=== PATIENT | female | born 1970 | race African-American/Black ===

== ENCOUNTER 2016-05-18 12:29 | Emergency (ER) ==
[2016-05-18] MEDS ORDERED: CATAPRES PO ONE (13:16)
--- NOTE | 2016-05-18 13:23 | PROVIDER DOCUMENTATION ---
HPI-Chest Pain <Joshua Royal - Last Filed: 05/18/16 16:05> - General Source: patient - History of Present Illness-CP Severity in ED: mild Onset/Duration: unsure Timing: still present Context/Activities at Onset: reports: light activity Associated Symptoms: reports: denies symptoms Nitro Today/Relief: no nitro taken today Aspirin Treatment Today: no aspirin today Prior Chest Pain/Cardiac Workup: reports: no prior chest pain Similar Symptoms Previously?: No Recently Seen Here or By Another Healthcare Provider: No <Carrie Carrasco - Last Filed: 05/18/16 16:32> - General Chief Complaint: Chest Pain Stated Complaint: CP,BLAIR Time Seen by Provider: 05/18/16 13:08 Allergies/Adverse Reactions: Patient Allergies Allergy/AdvReac Type Severity Reaction Status Date / Time adhesive tape Allergy ITCHING Verified 05/18/16 15:01 Home Medications: Home Medication List Medication Instructions Recorded Confirmed Last Taken Type Lisinopril 20 mg PO DAILY #30 tablet 07/05/15 03/14/16 2 Days Ago Rx Clopidogrel Bisulfate [Plavix] 75 mg PO DAILY 08/13/15 03/14/16 2 Days Ago History Levetiracetam [Keppra] 500 mg PO BID #60 tablet 09/22/15 03/14/16 2 Days Ago Rx Hydrocodone/APAP 7.5 mg/325 mg 1 each PO Q6H PRN PRN #12 tablet 11/04/15 2 Days Ago Rx [[place]-7.5] Alprazolam [Xanax] 1 mg PO BID 03/14/16 03/14/16 Unknown History Amlodipine Besylate [Norvasc] 10 mg PO DAILY 03/14/16 03/14/16 Unknown History Amlodipine Besylate [Norvasc] 10 mg PO QHS #30 tablet 03/14/16 Unknown Rx Lisinopril 10 mg PO DAILY #30 tablet 03/14/16 Unknown Rx Metformin [Glucophage] 500 mg PO BID 03/14/16 03/14/16 Unknown History Methocarbamol [Robaxin-750] 750 mg PO TID #30 tablet 03/14/16 Unknown Rx Tramadol [Ultram] 50 mg PO TID PRN PRN #30 tablet 03/14/16 Unknown Rx Clonidine HCl 0.1 mg PO TID PRN #30 tablet 05/18/16 Unknown Rx Hydralazine [Apresoline] 10 mg PO TID #90 tablet 05/18/16 Unknown Rx Metoprolol Tartrate 50 mg PO BID #60 tablet 05/18/16 Unknown Rx - History of Present Illness-CP Nature of Presenting Problem: Pt is a 45 yof who came to the ED with a cc of passing out due to the reflux from her titanium plug in her heart. Pt reports she has been passing out over the past week. Pt said she has not seen her heart doctor. (Carrie Carrasco) Review of Systems - Adult - REVIEW OF SYSTEMS - ADULT Constitutional: denies: chills, fever Eyes: reports: no symptoms reported Ears, Nose, Mouth & Throat: denies: sinus problem, mouth/dental pain Cardiovascular: reports: chest pain. denies: irregular heart rate, orthopnea Respiratory: reports: no symptoms reported Gastrointestinal: denies: diarrhea, nausea, vomiting Genitourinary: reports: no symptoms reported Musculoskeletal: reports: no symptoms reported Integumentary: reports: no symptoms reported Neurological: reports: no symptoms reported Psychiatric: reports: no symptoms reported Endocrine: reports: no symptoms reported Hematologic/Lymphatic: reports: no symptoms reported Allergic/Immunologic: reports: no symptoms reported All Other Systems: Reviewed and Negative <Carrie Carrasco - Last Filed: 05/18/16 16:32> Past History - Adult - PAST MEDICAL HISTORY-ADULT Review of Records: reports: Old Records Reviewed, Nursing Assessment Review Cardiovascular: reports: cardiac disease, HTN (for years and has never been controlled despite various multiple medication combinations.), hyperlipidemia, [place] Respiratory: reports: sleep apnea Musculoskeletal: reports: chronic pain, intervertebral disc disease, neck/back injury Neurological: reports: CVA, TIA Psychiatric: reports: anxiety, depression Endocrine/Immune: reports: thyroid disorder, Diabetes Other Conditions: reports: eye problems/injury - PRIOR SURGERIES/PROCEDURES Surgical/Procedure History: reports: cholecystectomy, hysterectomy, , tonsillectomy, other (cardiac implant) - IMMUNIZATION STATUS Childhood Immunizations: See Nurse Assessment Flu Vaccine: See Nurse Assessment - FAMILY HISTORY Family History: reviewed, not pertinent <Carrie Carrasco - Last Filed: 05/18/16 16:32> Physical Exam-General - CONSTITUTIONAL General Appearance: alert - EYES Eyes: PERRL/EOMI, pink conjunctivae, fundi clear, no AV nicking - HEAD, EARS, NOSE, MOUTH & THROAT HENMT: normocephalic/atraumatic, moist mucous membranes, normal ENT inspection - NECK Neck: non-tender - RESPIRATORY Respiratory: chest non-tender, lungs clear - CARDIOVASCULAR Cardiovascular: normal peripheral pulses, regular rate, rhythm, no edema - CHEST (BREASTS) Chest/Breast: deferred - GASTROINTESTINAL (ABDOMEN) Abdominal Exam: normal bowel sounds, non tender - MUSCULOSKELETAL Back Exam: normal inspection Extremity: non-tender - SKIN Integumentary: normal color - NEUROLOGIC Neurologic: grossly normal - PSYCHIATRIC Psych/Mental Status: normal mood/affect, normal thought content, normal thought process, oriented x 3 <Carrie Carrasco - Last Filed: 05/18/16 16:32> Progress <Joshua Royal - Last Filed: 05/18/16 16:05> - EKG 1 Time of EKG reading by physician:: 12:38 EKG Read and Signed by:: Joshua Royal EKG Interpretation (*Must complete 3 of following elements*): Abnormal Rate: 105 (right atrial enlargement; pulmonary disease pattern; left anterior fascicular block) Rhythm: sinus tachycardia <Carrie Carrasco - Last Filed: 05/18/16 16:32> - PLAN OF CARE/RESULTS Progress/Plan/Lab Results: Vital Signs - 24 hr 05/18/16 12:43 Temperature 97.5 F L Pulse Rate 102 H Respiratory 20 Rate Blood Pressure 206/117 O2 Sat by Pulse 100 Oximetry Orders Category Date Time Status Cardiac Monitoring DIRECTED Care 05/18/16 13:17 Active Saline Loc NOW Care 05/18/16 13:17 Active CHEST-2 VIEWS [RAD] Stat Exams 05/18/16 13:17 Ordered CBC WITH ELECTRONIC DIFF [HEME] Stat Lab 05/18/16 13:17 Uncollected CK PROFILE [SP CHEM] Stat Lab 05/18/16 13:17 Uncollected COMPREHENSIVE METABOLIC PANEL [CHEM] Stat Lab 05/18/16 13:17 Uncollected D-DIMER [CHEM] Stat Lab 05/18/16 13:17 Uncollected MAGNESIUM [CHEM] Stat Lab 05/18/16 13:17 Uncollected PRO B-NATRIURETIC PEPTIDE Stat Lab 05/18/16 13:17 Uncollected PROTIME WITH INR [COAG] Stat Lab 05/18/16 13:17 Uncollected PTT [COAG] Stat Lab 05/18/16 13:17 Uncollected TROPONIN T Stat Lab 05/18/16 13:17 Uncollected TROPONIN T Stat Lab 05/18/16 13:23 Ordered UDS [URINE DRUG SCREEN] Stat Lab 05/18/16 13:18 Uncollected Clonidine [Catapres] Med 05/18/16 13:16 Discontinued 0.2 mg PO NOW ONE EKG [EKG] Stat Ther 05/18/16 13:17 Ordered (Carrie Carrasco) Departure - Departure Time of Disposition Order: 16:05 Certified Medical Emergency: Emergent <Joshua Royal - Last Filed: 05/18/16 16:05> - Departure Time of Disposition Order: 16:15 Certified Medical Emergency: Emergent <Carrie Carrasco - Last Filed: 05/18/16 16:32> - Departure DIAGNOSIS: Illicit drug use, Uncontrolled hypertension Disposition: HOME 01 Condition: Stable Additional Instructions: pt to see Dr Ortiz tomorrow to determine if her fear of VSD repair malfunction needs to be of concern She needs to see her doctor to Fu on BP meds ED Follow Up Instructions: You have been treated by a care provider in the Emergency Department. These instructions are being provided to you so you can have an understanding of how to care for yourself upon discharge. Upon discharge from the Emergency Department, you are responsible for making arrangements for follow-up care by a physician of your choice. Take all prescribed medications as directed. Return to the Emergency Department immediately for any new or worsening symptoms. You may call the Physician Referral phone number at [phone] to obtain a list of Physicians who are taking new patients. Prescriptions: Hydralazine [Apresoline] 10 mg PO TID #90 tablet Clonidine HCl 0.1 mg PO TID PRN #30 tablet PRN Reason: hypertension Metoprolol Tartrate 50 mg PO BID #60 tablet Referrals: Brayden Tucker MD [Primary Care Provider] - Attestation - Scribe Verification/Attestation Scribe:: Carrie Carrasco Acting as Scribe for:: Joshua Royal Scribe documention review:: This chart was documented by a scribe and accurately reflects the service the provider performed and the decisions made by the provider. <Carrie Carrasco - Last Filed: 05/18/16 16:32> Physician Attestation
[2016-05-18 14:12] LABS: MANUAL DIFF NEEDED? NO
[2016-05-18 14:18] LABS: BASO% 0.1 % (0.0-0.8); HEMATOCRIT 40.1 % (37.0-47.0); HEMOGLOBIN 13.6 g/dL (12.0-16.0); LYMPH# 1.28 X1000 (1.2-3.4); LYMPH% 13.9 % (20.5-51.1); MCH 28.8 PG (27-31); MCHC 33.9 g/dL (33-37); MONO# 0.69 X1000 (0.11-0.59); MONO% 7.5 % (1.7-9.3); MPV 9.2 FL (7.4-10.4); NEUT% 78.5 % (42.2-75.2); PLT 287 X1000 (130-400); RBC 4.72 XMIL (4.2-5.4)
[2016-05-18 14:33] LABS: AGAP 16; ALBUMIN 4.3 g/dL (3.5-5.0); ALKALINE PHOSPHATASE 66 U/L (32-104); BUN 9 mg/dL (8-22); CHLORIDE 100 mmol/L (98-107); CK PROFILE 117 U/L (24-173); COSMO 279; GOT 18 U/L (10-30); GPT 18 U/L (10-36); MAGNESIUM 1.5 mg/dL (1.5-2.7); POTASSIUM 3.1 mmol/L (3.5-5.1); SODIUM 141 mmol/L (136-145); TCO2 25 mmol/L (25-35); TOTAL BILIRUBIN 0.54 mg/dL (0.20-1.00); TOTAL PROTEIN 7.7 g/dL (6.3-8.3)
[2016-05-18] MEDS ORDERED: APRESOLINE IV ONE (15:00)
[2016-05-18 15:30] LABS: INR 1.02; PROTIME 10.8 Seconds (9.2-11.7)
[2016-05-18 15:35] LABS: UR AMPHETAMINES QUAL NONE DETECTED (NONE DETECT); UR BARBITUATES QUAL NONE DETECTED (NONE DETECT); UR BENZODIAZEPIN QUAL NONE DETECTED (NONE DETECT); UR CANNABINOIDS QUAL PRESUMPTIVE POSITIVE (NONE DETECT); UR COCAINE QUAL NONE DETECTED (NONE DETECT); UR METHADONE QUAL NONE DETECTED (NONE DETECT); UR OPIATES QUAL NONE DETECTED (NONE DETECT); UR OXYCODONE QUAL NONE DETECTED (NONE DETECT); UR PCP QUAL NONE DETECTED (NONE DETECT)
[2016-05-18 15:40] LABS: PTT 27.6 Seconds (22.0-36.0)
--- NOTE | 2016-05-18 15:53 | Diag Imaging Result Document ---
PROCEDURE NAME: CHEST-2 VIEWS - 05/18/2016 SEATED AP AND LATERAL RADIOGRAPH OF THE CHEST: COMPARISON: 12/21/2015. FINDINGS: The lungs are grossly clear. There is no discrete pleural fluid collection or evidence of pneumothorax. The cardiomediastinal silhouette and upper airway are grossly unremarkable. IMPRESSION: No evidence of acute chest pathology.
[2016-05-18 16:11] VITALS: BP 140/93
--- NOTE | 2016-05-19 05:35 | EKG Report ---
Test Performed on : 05/18/2016 2:55:46 PM Test Reason : cp Blood Pressure : / mmHG Vent. Rate : 085 BPM Atrial Rate : 085 BPM P-R Int : 128 ms QRS Dur : 082 ms QT Int : 398 ms P-R-T Axes : 053 -53 011 degrees QTc Int : 473 ms Normal sinus rhythm. Left anterior fascicular block Nonspecific T wave abnormality Abnormal ECG When compared with ECG of 18-MAY-2016 12:38, (Unconfirmed) No significant change was found Unconfirmed Result
--- NOTE | 2016-05-19 05:52 | EKG Report ---
Test Performed on : 05/18/2016 12:38:40 PM Test Reason : Re-Ordered Blood Pressure : / mmHG Vent. Rate : 105 BPM Atrial Rate : 105 BPM P-R Int : 134 ms QRS Dur : 082 ms QT Int : 364 ms P-R-T Axes : 066 -57 029 degrees QTc Int : 481 ms Sinus tachycardia. Right atrial enlargement Pulmonary disease pattern Left anterior fascicular block Abnormal ECG When compared with ECG of 14-MAR-2016 19:59, No significant change was found Unconfirmed Result
== END 2016-05-18 17:08 | disposition home or self-care (01) ==
LOC: ED 12:29
DX: I10 Essential (primary) hypertension (principal); F19.90 Other psychoactive substance use, unspecified, uncomplicated; R94.31 Abnormal electrocardiogram [ECG] [EKG]; R07.9 Chest pain, unspecified; R51 Headache; R55 Syncope and collapse; E78.5 Hyperlipidemia, unspecified; I25.2 Old myocardial infarction; G89.29 Other chronic pain; E11.9 Type 2 diabetes mellitus without complications; F41.9 Anxiety disorder, unspecified; Z79.02 Long term (current) use of antithrombotics/antiplatelets; Z79.899 Other long term (current) drug therapy; Z86.73 Personal history of transient ischemic attack (TIA), and cerebral infarction without residual deficits; Z95.818 Presence of other cardiac implants and grafts
CPT/HCPCS: 71020; 80053; 82550; 83735; 83880; 84484; 85025; 85379; 85610; 85730; 93005; G0480; J0360; 80324; 80345; 80346; 80349; 80353; 80358; 80361; 80365; 83992

== ENCOUNTER 2016-07-15 12:13 | Inpatient (IN) ==
--- NOTE | 2016-07-15 12:30 | EKG Report ---
Test Performed on : 07/15/2016 12:17:59 PM Test Reason : Stroke like symptoms Blood Pressure : / mmHG Vent. Rate : 103 BPM Atrial Rate : 103 BPM P-R Int : 126 ms QRS Dur : 080 ms QT Int : 354 ms P-R-T Axes : 063 -58 039 degrees QTc Int : 463 ms Sinus tachycardia. Possible Left atrial enlargement Left anterior fascicular block Left ventricular hypertrophy Abnormal ECG When compared with ECG of 18-MAY-2016 14:55, Nonspecific T wave abnormality no longer evident in Inferior leads Nonspecific T wave abnormality, improved in Lateral leads Unconfirmed Result
--- NOTE | 2016-07-15 13:06 | Diag Imaging Result Doc PS360 ---
CHEST-PORTABLE - 07/15/2016 INDICATION: Strokelike symptoms COMPARISON: 05/18/2016 FINDINGS: The lungs are normally expanded and clear. Heart size and mediastinal contours are normal. No pneumothorax or pleural effusion. IMPRESSION: Negative exam. Electronically signed by Willian Chapman 07/15/2016 1:03 PM
--- NOTE | 2016-07-15 13:09 | Diag Imaging Result Doc PS360 ---
HEAD W/O CONTRAST - 07/15/2016 INDICATION: Stroke like symptoms COMPARISON: 03/14/2016 FINDINGS: The ventricles and sulci are normal in size and contour. No intracranial mass or hemorrhage. The skull is intact. The sinuses mastoids and middle ears are clear. IMPRESSION: Negative exam. Electronically signed by Willian Chapman 07/15/2016 1:07 PM
[2016-07-15 13:54] LABS: MANUAL DIFF NEEDED? NO
[2016-07-15 13:57] LABS: BASO% 0.4 % (0.0-0.8); EOS# 0.01 X1000 (0.0-0.7); EOS% 0.2 % (0.0-10.0); HEMATOCRIT 40.1 % (37.0-47.0); HEMOGLOBIN 13.4 g/dL (12.0-16.0); LYMPH# 1.83 X1000 (1.2-3.4); LYMPH% 38.3 % (20.5-51.1); MCH 28.6 PG (27-31); MCHC 33.4 g/dL (33-37); MCV 85.5 FL (81-99); MONO# 0.43 X1000 (0.11-0.59); MPV 9.8 FL (7.4-10.4); NEUT% 52.1 % (42.2-75.2); PLT 248 X1000 (130-400); RBC 4.69 XMIL (4.2-5.4)
[2016-07-15 14:13] LABS: AGAP 10; ALBUMIN 4.2 g/dL (3.5-5.0); ALKALINE PHOSPHATASE 65 U/L (32-104); BUN 12 mg/dL (8-22); CALCIUM 9.9 mg/dL (8.8-10.2); CHLORIDE 101 mmol/L (98-107); COSMO 280; GOT 18 U/L (10-30); GPT 15 U/L (10-36); POTASSIUM 2.8 mmol/L (3.5-5.1); SODIUM 141 mmol/L (136-145); TCO2 30 mmol/L (25-35); TOTAL BILIRUBIN 0.63 mg/dL (0.20-1.00); TOTAL PROTEIN 7.2 g/dL (6.3-8.3)
--- NOTE | 2016-07-15 14:23 | PROVIDER DOCUMENTATION ---
This chart was entered by Carrie Carrasco Scribe, acting as scribe for Joshua Royal MD. HPI-Neurological Disorder - General Chief Complaint: Stroke-Like Symptoms Stated Complaint: STROKE LIKE SX Time Seen by Provider: 07/15/16 12:33 Source: patient Allergies/Adverse Reactions: Patient Allergies Allergy/AdvReac Type Severity Reaction Status Date / Time adhesive tape Allergy ITCHING Verified 05/18/16 15:01 Home Medications: Home Medication List Medication Instructions Recorded Confirmed Last Taken Type Lisinopril 20 mg PO DAILY #30 tablet 07/05/15 03/14/16 2 Days Ago Rx Clopidogrel Bisulfate [Plavix] 75 mg PO DAILY 08/13/15 03/14/16 2 Days Ago History Levetiracetam [Keppra] 500 mg PO BID #60 tablet 09/22/15 03/14/16 2 Days Ago Rx Hydrocodone/APAP 7.5 mg/325 mg 1 each PO Q6H PRN PRN #12 tablet 11/04/15 2 Days Ago Rx [[place]-7.5] Alprazolam [Xanax] 1 mg PO BID 03/14/16 03/14/16 Unknown History Amlodipine Besylate [Norvasc] 10 mg PO DAILY 03/14/16 03/14/16 Unknown History Amlodipine Besylate [Norvasc] 10 mg PO QHS #30 tablet 03/14/16 Unknown Rx Lisinopril 10 mg PO DAILY #30 tablet 03/14/16 Unknown Rx Metformin [Glucophage] 500 mg PO BID 03/14/16 03/14/16 Unknown History Methocarbamol [Robaxin-750] 750 mg PO TID #30 tablet 03/14/16 Unknown Rx Tramadol [Ultram] 50 mg PO TID PRN PRN #30 tablet 03/14/16 Unknown Rx Clonidine HCl 0.1 mg PO TID PRN #30 tablet 05/18/16 Unknown Rx Hydralazine [Apresoline] 10 mg PO TID #90 tablet 05/18/16 Unknown Rx Metoprolol Tartrate 50 mg PO BID #60 tablet 05/18/16 Unknown Rx - History of Present Illness-Neuro Nature of Presenting Problem: Pt is 45 yof who came to the ED with a cc of stroke like symptoms. Pt mother reports the symptoms started yesterday at 19:00. The pt symptoms were slurred speech, right sided weakness. Pt has a hx of smoking spice reported from the mother. The pt is unable to walk due to her dragging her right foot. The pt lives alone and has a hx of mini strokes in the past. Severity: reports: moderate Onset/Duration: reports: 24 hours ago Timing: reports: still present Any recent trauma/injury?: reports: none Character of Deficits: reports: new weakness, impaired speech, decreased ability to stand, decreased ability to walk New weakness or altered sensation location:: reports: RUE, RLE Cognitive Baseline: alert, oriented x3 Associated Symptoms: reports: slurred speech, weakness Recently seen or treated by another doctor?: No Review of Systems - Adult - REVIEW OF SYSTEMS - ADULT Constitutional: denies: chills, fever Eyes: reports: no symptoms reported Ears, Nose, Mouth & Throat: reports: no symptoms reported Cardiovascular: reports: no symptoms reported Respiratory: reports: no symptoms reported Gastrointestinal: denies: diarrhea, nausea, vomiting Genitourinary: reports: no symptoms reported Musculoskeletal: reports: muscle weakness. denies: frequent leg cramps, joint pain Integumentary: reports: no symptoms reported Neurological: reports: loss of balance, slurred speech. denies: ataxia, syncope Psychiatric: reports: no symptoms reported Endocrine: reports: no symptoms reported Hematologic/Lymphatic: reports: no symptoms reported Allergic/Immunologic: reports: no symptoms reported All Other Systems: Reviewed and Negative Past History - Adult - PAST MEDICAL HISTORY-ADULT Review of Records: reports: Nursing Assessment Review Cardiovascular: reports: cardiac disease, HTN (for years and has never been controlled despite various multiple medication combinations.), hyperlipidemia, [place] Respiratory: reports: sleep apnea Musculoskeletal: reports: chronic pain, intervertebral disc disease, neck/back injury Neurological: reports: CVA, TIA Psychiatric: reports: anxiety, depression Endocrine/Immune: reports: thyroid disorder, Diabetes Other Conditions: reports: eye problems/injury - PRIOR SURGERIES/PROCEDURES Surgical/Procedure History: reports: cholecystectomy, hysterectomy, , tonsillectomy, other (cardiac implant) - IMMUNIZATION STATUS Childhood Immunizations: See Nurse Assessment Flu Vaccine: See Nurse Assessment - FAMILY HISTORY Family History: reviewed, not pertinent Physical Exam- Neurological - Physical Exam-Neuro Initial Vital Signs Reviewed: Yes General Appearance: alert, severe distress HENMT: normocephalic/atraumatic, moist mucous membranes Head Injury: no evidence of injury Neck: non-tender Respiratory: chest non-tender, lungs clear, normal breath sounds Cardiovascular: normal peripheral pulses, regular rate, rhythm Abdominal Exam: normal bowel sounds, non tender, soft Extremity: negative: normal gait medical scientist Exam: abnormal speech Coordination/Gait: abnormal gait Motor/Sensory: pronator drift (R), weak motor strength RUE, weak motor strength RLE Neurologic: abnormal gait, motor weakness Integumentary: normal turgor, warm/dry Psych/Mental Status: oriented x 3 - Glascow Coma Scale Best Eye Response: (4) open spontaneously Best Verbal Response: (5) oriented Progress - PLAN OF CARE/RESULTS Progress/Plan/Lab Results: Vital Signs - 8 hr 07/15/16 12:21 07/15/16 13:45 07/15/16 14:09 Temperature 97.8 F Pulse Rate 109 H 91 H 87 Respiratory Rate 20 15 20 Blood Pressure 209/123 196/124 206/118 O2 Sat by Pulse Oximetry 99 99 98 07/15/16 15:45 Temperature Pulse Rate 88 Respiratory Rate 17 Blood Pressure 172/117 O2 Sat by Pulse Oximetry 98 Laboratory Results - last 24 hr 07/15/16 07/15/16 07/15/16 13:42 13:42 13:42 WBC 4.78 L RBC 4.69 Hgb 13.4 Hct 40.1 MCV 85.5 MCH 28.6 MCHC 33.4 RDW Std Deviation 13.5 Plt Count 248 MPV 9.8 Immature Gran % (Auto) 0.0 Neut % (Auto) 52.1 Lymph % (Auto) 38.3 [place] % (Auto) 9.0 Eos % (Auto) 0.2 Baso % (Auto) 0.4 Immature Gran # (Auto) 0.00 Neut # (Auto) 2.49 Lymph # (Auto) 1.83 [place] # (Auto) 0.43 Eos # (Auto) 0.01 Baso # (Auto) 0.02 PT 10.2 INR 0.97 PTT (Actin FS) 32.0 Sodium 141 Potassium 2.8 L Chloride 101 Carbon Dioxide 30 Anion Gap 10 BUN 12 Creatinine 0.7 Estimated GFR/1.73 m2 > 60 BUN/Creatinine Ratio 17 Glucose 87 Calculated Osmolality 280 Calcium 9.9 Total Bilirubin 0.63 AST 18 ALT 15 Alkaline Phosphatase 65 Troponin T Total Protein 7.2 Albumin 4.2 Globulin 3.0 Albumin/Globulin Ratio 1.4 07/15/16 13:42 WBC RBC Hgb Hct MCV MCH MCHC RDW Std Deviation Plt Count MPV Immature Gran % (Auto) Neut % (Auto) Lymph % (Auto) [place] % (Auto) Eos % (Auto) Baso % (Auto) Immature Gran # (Auto) Neut # (Auto) Lymph # (Auto) [place] # (Auto) Eos # (Auto) Baso # (Auto) PT INR PTT (Actin FS) Sodium Potassium Chloride Carbon Dioxide Anion Gap BUN Creatinine Estimated GFR/1.73 m2 BUN/Creatinine Ratio Glucose Calculated Osmolality Calcium Total Bilirubin AST ALT Alkaline Phosphatase Troponin T < 0.010 Total Protein Albumin Globulin Albumin/Globulin Ratio Orders Category Date Time Status Cardiac Monitoring DIRECTED Care 07/15/16 12:28 Active Finger Stick Blood Sugar (ED) DIRECTED Care 07/15/16 12:28 Active Misc. NRSG Communication Order DIRECTED Care 07/15/16 12:28 Completed Misc. NRSG Communication Order DIRECTED Care 07/15/16 15:47 Active Saline Loc NOW Care 07/15/16 12:28 Active CHEST-PORTABLE [RAD] Stat Exams 07/15/16 12:28 Completed HEAD W/O CONTRAST [CT] Stat Exams 07/15/16 12:28 Completed CBC WITH ELECTRONIC DIFF [HEME] Stat Lab 07/15/16 13:42 Completed COMPREHENSIVE METABOLIC PANEL [CHEM] Stat Lab 07/15/16 13:42 Completed PROTIME WITH INR [COAG] Stat Lab 07/15/16 13:42 Completed PTT [COAG] Stat Lab 07/15/16 13:42 Completed TROPONIN T Stat Lab 07/15/16 13:42 Completed URINALYSIS W/POSS RFLX CULT-1 [URINALYSIS] Stat Lab 07/15/16 14:50 Ordered URINE DRUG SCREEN Stat Lab 07/15/16 14:50 Ordered Potassium Chloride 20% Liquid Med 07/15/16 15:43 Discontinued 60 meq PO NOW ONE EKG [EKG] Stat Ther 07/15/16 12:28 Draft Result Diagrams: 07/15/16 13:42 07/15/16 13:42 - EKG 1 Time of EKG reading by physician:: :17 EKG Read and Signed by:: Giancarlo Valadez EKG Interpretation (*Must complete 3 of following elements*): Abnormal Rate: 103 (possible left atrial enlargement; left anterior fascicular block; left ventricular hypertrophy) Rhythm: sinus tachycardia - CONSULTS/PCP/HOSPITALIST Notification #1 *Consult/PCP/Hospitalist*: Dr Tracy Time Discussed: 16:10 Reason/Comments: admit for evaluation and placement for rehab Departure - Departure Time of Disposition Decision: 16:11 DIAGNOSIS: CVA (cerebral vascular accident) Qualifiers: CVA mechanism: thrombosis Precerebral and cerebral artery: middle cerebral artery Laterality of affected vessel: unspecified Qualified Code(s): I63.319 - Cerebral infarction due to thrombosis of unspecified middle cerebral artery Disposition: ADMITTED INPATIENT 09 Certified Medical Emergency: Emergent Condition: Stable - Critical Care Note This patient required my direct & personal management of CC.: No This chart was documented by the indicated scribe, (Carrie Carrasco Scribe) and accurately reflects the services I performed and decisions made by me, Joshua Royal MD, as attested by the provider's signature.
[2016-07-15 14:27] LABS: INR 0.97; PROTIME 10.2 Seconds (9.2-11.7)
[2016-07-15] MEDS ORDERED: POTASSIUM CHLORIDE 20% LIQUID PO ONE (15:43)
[2016-07-15 17:25] LABS: HEMOGLOBIN A1C 5.5 % (4.8-6.0)
[2016-07-15 17:55] LABS: CK INDEX 0.9 (0.0-2.5); CK-MB 2.1 ng/mL (0.0-5.0)
--- NOTE | 2016-07-15 18:12 | HISTORY AND PHYSICAL ---
PRIMARY CARE PHYSICIAN: Brayden Tucker MD CHIEF COMPLAINT: Right-sided weakness and dysphagia. HISTORY OF PRESENT ILLNESS: Mrs. Reyes is a 45-year-old female with a history of a coronary artery disease, TIAs in the past, diabetes mellitus, and others, who presents with acute onset of right-sided weakness that began yesterday. She report yesterday that around 7 p.m. she lost feeling in her right arm and leg as well as the right side of her face. She did not seek emergent help at that time. She went to bed as normal and woke up this morning with a very hard stutter, some mild confusion and worsening right-sided weakness. Her mother came over at around 10 and brought her to the ER. Patient also has been having abdominal pain, nausea, vomiting, diarrhea, as well as occasional chest pain. Chills, but no fever. She reports lower extremity edema on occasion. Unfortunately, however, patient is a poor historian, given her dysphagia, family is at the bedside able to help with some questions. The patient reports that she is unable to afford her medications for blood pressure and diabetes and has not taken any in the past 3 months. She also reports she has a history of synthetic marijuana abuse and has not used for about 5 months, but when we left the room her sister did stop us in the hallway and states they believe she is still using some substance of unknown specificity as she is often times altered and with slurred speech. In the ER today, she had a normal head CT and her labs were essentially unremarkable with the exception of some hypokalemia. Her blood pressure is elevated, but overall her vitals are stable. On physical exam, the patient has a very hard stutter but she is oriented. She also has a mild right-sided facial droop, but her application development director strength is strong bilaterally. We are going to admit her for further treatment and evaluation. PAST MEDICAL HISTORY: 1. CAD. 2. Hyperlipidemia. 3. Obstructive sleep apnea. 4. Chronic pain. 5. History of CVA. 6. History of TIAs. 7. Depression. 8. Hypothyroidism. 9. Diabetes. 10. Medical noncompliance. 11. 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 SURGICAL HISTORY: Hysterectomy, , tonsillectomy, cholecystectomy, coronary stenting, apparent PFO closure, breast reduction, multiple knee surgeries. SOCIAL HISTORY: The patient smokes half a pack a day. She reports occasional alcohol use and reports she has not used synthetic marijuana in some time, but family states otherwise. FAMILY HISTORY: Noncontributory at this time. HOME MEDICATIONS: Xanax 1 mg b.i.d. Norvasc 10 mg b.i.d. Plavix 75 mg daily. Hydralazine 10 mg t.i.d. [place] 7.5 as needed for pain. Keppra 500 mg b.i.d. Lisinopril 30 mg daily. Robaxin 750 mg p.o. t.i.d. Metoprolol tartrate 50 mg p.o. b.i.d. ALLERGIES: Adhesive tape. REVIEW OF SYSTEMS: A 14 point review of systems obtained and found to be negative with the exception of the HPI. PHYSICAL EXAMINATION: VITAL SIGNS: Blood pressure is 206/118, heart rate 87, respiratory rate 20, O2 saturation 98% on room air. Temperature is 97.8 degrees. GENERAL: This is a thin bordering on frail-appearing and disheveled 45-year-old female who appears older than stated age lying, in hospital bed in no acute distress. NEUROLOGIC: The patient is awake and alert. She is stuttering, but overall is oriented. Her application development director strength is 5/5 in both upper extremities. She does have some right lower extremity weakness in the order of 3/5. She reports right-sided facial loss of sensation compared to the left, and she has a right-sided facial droop. HEENT: Head is atraumatic and normocephalic. Her pupils are equal, round, and reactive to light. Oral mucosa is dry. Trachea is midline. Neck is supple. No JVD. No carotid bruits. CHEST: Clear to auscultation bilaterally. CARDIOVASCULAR: Regular rate and rhythm. S1-S2 is noted. No murmurs, gallops, clicks, or rubs. GI: Soft, nondistended, nontender. Bowel sounds positive. EXTREMITIES: Without edema, clubbing or cyanosis. Pulses are palpable bilaterally. DIAGNOSTIC DATA: WBC 4.78, hemoglobin 13.4, hematocrit 40.1, platelet count 248,000. INR 0.97. PT 10.2. Sodium 141, potassium 2.8, chloride 101, CO2 30, anion gap 10, BUN 12, creatinine 0.7, glucose 87. LFTs within normal limits. Troponins and CKs are normal. ASSESSMENT AND PLAN: 1. Stroke-like symptoms: We are going to continue with the stroke workup. We still need a drug screen, thyroid function, B12, folate, MRI and echocardiogram. All of these have been ordered. We will admit the patient for telemetry and allow for permissive hypertension. We will do neurologic checks every 4 hours and add aspirin and statin. We will make sure to optimize her medications. 2. Hypokalemia: Check a magnesium and replace her potassium and follow. 3. Diabetes mellitus: Check a hemoglobin A1c. Add pattern sugars and sliding scale. 4. Hypertension: We will hold her medications to allow for permissive hypertension. 5. Coronary artery disease: We will check an echocardiogram, trend enzymes and make sure she is on aspirin and statin. Hold her beta-alex for now. She will need significant lifestyle modification. 6. Nicotine dependence: Patient has been advised to quit smoking. She is allergic to adhesives, so we cannot write a nicotine patch at least at this time. 7. Deep venous thrombosis prophylaxis will be provided with Lovenox. Further recommendations to follow. Dictated by CARINA Heath for Murphy Tracy MD cc: CARINA Heath MD Moses Awoniyi, MD
[2016-07-15] MEDS: NS 1,000 ML IV SCH (20:05)
[2016-07-15] MEDS: LIPITOR PO SCH (20:14)
[2016-07-15] MEDS: ASPIRIN PO SCH (20:14)
[2016-07-15] MEDS: DUONEB (A & A) INH SCH ×2 (23:15)
[2016-07-15 23:17] LABS: URINE MICRO REVIEW NEEDED? NO; URINE SOURCE CLEAN CATCH
[2016-07-15 23:20] LABS: BILIRUBIN URINE NEGATIVE (NEGATIVE); BLOOD URINE NEGATIVE (NEGATIVE); COLOR YELLOW; GLUCOSE URINE NEGATIVE (NEGATIVE); LEUKOCYTES URINE MODERATE (NEGATIVE); NITRITE URINE NEGATIVE (NEGATIVE); PH URINE 7.5; PROTEIN URINE 50 mg/dL (NEGATIVE); SP GRAVITY URINE 1.033; TURBIDITY URINE CLEAR (CLEAR); UROBILINOGEN URINE 8 mg/dL (NORMAL)
[2016-07-15 23:21] LABS: UR EPITHELIAL CELLS <10 /HPF (<10); URINE BACTERIA NEGATIVE /HPF; URINE CULTURE NEEDED? YES; URINE RBC <10 /HPF (<10)
[2016-07-15 23:55] LABS: UR AMPHETAMINES QUAL NONE DETECTED (NONE DETECT); UR BARBITUATES QUAL NONE DETECTED (NONE DETECT); UR BENZODIAZEPIN QUAL NONE DETECTED (NONE DETECT); UR CANNABINOIDS QUAL PRESUMPTIVE POSITIVE (NONE DETECT); UR COCAINE QUAL NONE DETECTED (NONE DETECT); UR METHADONE QUAL NONE DETECTED (NONE DETECT); UR OPIATES QUAL NONE DETECTED (NONE DETECT); UR OXYCODONE QUAL NONE DETECTED (NONE DETECT); UR PCP QUAL NONE DETECTED (NONE DETECT)
[2016-07-16] MEDS: HUMALOG SUBQ SCH ×5 (00:10→20:40)
[2016-07-16] MEDS: DUONEB (A & A) INH SCH ×6 (03:48→23:05)
[2016-07-16] MEDS ORDERED: TYLENOL PO PRN (04:37)
[2016-07-16 06:41] LABS: HEMOGLOBIN 11.8 g/dL (12.0-16.0)
[2016-07-16 07:00] LABS: AGAP 11; BUN 13 mg/dL (8-22); CALCIUM 8.4 mg/dL (8.8-10.2); CHLORIDE 103 mmol/L (98-107); COSMO 279; SODIUM 140 mmol/L (136-145); TCO2 26 mmol/L (25-35)
[2016-07-16] MEDS ORDERED: ATIVAN IV ONE (08:45)
[2016-07-16] MEDS ORDERED: KLOR-CON PO ONE (08:54)
[2016-07-16 09:20] LABS: HEMATOCRIT 36.3 % (37.0-47.0); MCH 28.8 PG (27-31); MCHC 32.5 g/dL (33-37); MCV 88.5 FL (81-99); MPV 10.2 FL (7.4-10.4); RBC 4.1 XMIL (4.2-5.4)
--- NOTE | 2016-07-16 10:19 | Diag Imaging Result Doc PS360 ---
EXAM: MRA BRAIN W/O CONTRAST HISTORY: stroke COMPARISON: None. FINDINGS: MR angiography of the [place] of [place]. MIP images obtained there is normal flow in each distal internal carotid artery. Normal filling of the anterior and middle cerebral arteries bilaterally. Normal flow in the basilar artery with normal filling of each posterior cerebral artery. No stenosis or occlusion. No aneurysm identified.. IMPRESSION: Negative MR angiography of the [place] of [place]. Electronically signed by Jj Vargas 07/16/2016 10:17 AM
--- NOTE | 2016-07-16 10:39 | Diag Imaging Result Doc PS360 ---
EXAM: MRA NECK W/CONT HISTORY: stroke like symptoms COMPARISON: None. FINDINGS: MIP images obtained. Normal flow within each common carotid artery. No stenosis. Normal flow within each internal carotid artery. No stenosis. There is flow in both vertebral arteries. No stenosis. IMPRESSION: Normal MR angiography of the neck. Electronically signed by Jj Vargas 07/16/2016 10:37 AM
--- NOTE | 2016-07-16 10:50 | Diag Imaging Result Doc PS360 ---
EXAM: MRI BRAIN W W/O CONTRAST HISTORY: stroke with normal ct scan COMPARISON: None. FINDINGS: Axial, sagittal, and coronal images obtained in multiple sequences. These were followed by postcontrast axial and coronal images. There is a small recent ischemic area adjacent to or involving the posterior horn of the left internal capsule. Adjacent to this is an old lacune. No other ischemic areas. No mass or midline shift. No enhancing lesions on the postcontrasted images. No epidural or subdural fluid collection. No hydrocephalus. No sinus opacification. IMPRESSION: Small recent ischemic area in the mid left parietal lobe extending toward the left thalamus involving or adjacent to the posterior horn of the internal capsule. Electronically signed by Jj Vargas 07/16/2016 10:48 AM
[2016-07-16] MEDS: ASPIRIN PO SCH (10:58)
--- NOTE | 2016-07-16 16:04 | PROGRESS NOTE ---
DATE: 07/16/2016 SUBJECTIVE: Today, Ms. Reyes referred to be doing a lot better. She was actually doing physical therapy when we saw her. OBJECTIVE: Vital signs: Blood pressure is 180/105, pulse of 100, respirations 18, temperature 98.1 degrees. General: Ms. Reyes is a 45-year-old, female. She just finished doing physical therapy and she was sitting up in the bed. She was drenched in sweat but was not in any distress. HEENT: Mucosa is pink and moist. Chest: Good air entry bilateral. Cardiovascular: Regular rate and rhythm. There is no murmurs. No rubs, no gallops. Abdomen: Soft. Extremities: No pedal edema. TERRAZZO LABORER: Patient was alert and awake and conscious. She did have stuttering speech. She would interfere multiple times not able to speak very clearly but she does understand everything. It is just the motor aspect of the speech that seems to be impaired. Patient also has a mild right-sided weakness. Power of about 4- over 5, both in the right upper and the right upper and lower extremities. However reflexes are intact. LABORATORY DATA: WBC is 3.87, hemoglobin is 11.8, platelet count 229,000. Chemistry is reviewed. Potassium is 3.05, magnesium is 8.4. The lipids have been reviewed, unremarkable. The MRI of the brain which was done today shows small recent ischemic area in the mid left parietal lobe extending towards the left thalamus involving or adjacent to the posterior horn of the internal capsule. The MRA of the brain and MRA of the neck is completely normal. ASSESSMENT: 1. Left dominant hemispheric stroke with right side hemiparesis and speech disturbance. We are going to consult Neurology to evaluate the patient. For now, we will continue with statin and clopidogrel which patient was already on. 2. Hypertension. We are going to allowing for some liberal blood pressure. We will start her on some of her medications but we do not want the blood pressure to be completely normal. 3. Sweating the patient has been experiencing bouts of sweats and she is on a lot of sedatives and pain medications at home which she is not getting and I am afraid she is probably withdrawing from some of them. We would therefore restart her on her home medications which were Xanax, [place]. She was also on Keppra before and Robaxin. 4. Hypokalemia. We will replace this. In general, I think Ms. Reyes is relatively stable. She continues to have significant speech disturbance. We will get speech evaluation. We will get Neurology to see her and we will consult the social economist to start planning her discharge for rehab. cc: Murphy Tracy MD
--- NOTE | 2016-07-16 16:48 | ECHO REPORT ---
ORDER DATE: 07/15/2016 INTERPRETING PHYSICIAN: Dr. Stuart REQUESTING PHYSICIAN: CLINICAL INDICATIONS: A 45-year-old female with stroke like symptoms, smoker, diabetes. M-MODE MEASUREMENTS: Right ventricle: 2.8 cm. Left ventricle end diastole: 3.8 cm. Left ventricle end systole: 2.3 cm. Posterior wall: 1.2 cm. Interventricular septum: 1.4 cm. Left atrium: 3.3 cm. Aortic root: 3.3 cm. SUMMARY OF 2-DIMENSIONAL IMAGING: The left ventricular function is normal. Ejection fraction 63%. The chamber is moderately to significantly enlarged. The right ventricle is probably not dilated. The interatrial septum shows in its most basal and cranial aspect the presence of septal occluder. At the level of the most distal and closer to the A-V valve aspect, there is presence of a highly mobile segment of the intraatrial septum with a [id number] shunt that might be continuous and secondary to the residual atrial septal defect or patent foramen [place]. The tricuspid valve looks normal with a very mild degree of regurgitation. The inferior vena cava is not dilated. Pulmonary pressure is normal, estimated at 29 mmHg. The pulmonic valve looks normal. Color flow mapping unremarkable. The aortic valve looks normal. Color flow mapping unremarkable. The mitral valve shows a mild degree of regurgitation. Pulse wave Doppler of mitral inflow is normal. Tissue Doppler of septal and lateral mitral annulus averages 8 cm per second. Pulmonary venous flow is normal. There is no diastolic dysfunction. There is no pericardial effusion. IMPRESSION: In summary, this study shows: 1. Normal left ventricular systolic function with moderately dilated left ventricle and mild degree of concentric LVH. 2. Presence of occluder device at the level of the intraatrial septum with a residual left-to- right shunt, probably a patent foramen [place] or residual atrial septal defect. 3. Normal diastolic function. 4. Normal pulmonary pressure. 5. The right ventricle is not dilated. Clinical correlation recommended. cc: MD Rohit Welch CRNP MTDD
--- NOTE | 2016-07-16 17:44 | CONSULTATION ---
DATE OF CONSULTATION: 07/16/2016 NEUROLOGY CONSULTATION Room 371B HISTORY OF PRESENT ILLNESS: Ms. Reyes is 45 years old and she had a spell raising question of neurologic event. She reports detailing her car about 48 hours ago and feeling overheated. She noticed some trouble with her speech when she made a phone call shortly after that. She felt heavy in the right limbs. The next morning, symptoms were persistent and she presented to the emergency room. She reports symptoms are a little bit improved now but not resolved. She reports having somewhat similar episodes in the last 10 months. Ten months ago, she remembers standing near a vehicle feeling well and then suddenly realizing that she was being helped from underneath the vehicle. She was helped to her feet and then apparently collapsed again, fell, struck her chin on the driveway. Ambulance was called but she does not remember anything else until the ambulance personnel were on the scene checking on her. After that, she had heaviness in the right limbs and trouble with her speech which resolved over a few days. Since then, she has had episodes of heaviness in the right limbs and trouble with speech lasting 2 or 3 days at a time, approximately 8 episodes over the last 10 months. With 4 of these episodes, she believes that she collapsed unconscious. Once, she struck her head and required sutures across the right forehead. There has not been any other serious injury associated with these episodes. At some point, she was started on levetiracetam and she took that at uncertain dose 1 tablet daily for about a month and did not have any episodes during that time. She did not have any trouble tolerating levetiracetam, by her report today. She reports being unable to afford her doctor visits to get prescriptions to continue her medicines and that includes her blood pressure and blood sugar medicines. She is able to afford cigarettes and she does have a history of presenting with positive drug screens for benzodiazepines at times in the past, and for cannabis on several occasions including the current admission. There is also a report in the chart that the family has been concerned about illicit substance use. She also reports a history of episodes, possibly associated with headache, uncertain altered consciousness occurring several years ago. She believes that I saw her for evaluation of that problem as an outpatient under a different name in 2009. Unfortunately, I do not have 2010 office records available for review at this time. Workup this admission includes brain MRI yesterday reported to show evidence of a small recent ischemic change in the mid left parietal white matter extending toward the thalamus. This did not enhance. There were no other significant findings. Brain MRA and cervical MRA yesterday were reported unremarkable. Her initial noncontrast CT of the head on presentation yesterday was reported unremarkable. Past history is remarkable for hypertension, diabetes mellitus, uncertain history of ischemic heart disease. Lab work this admission showed a mildly reduced WBC count, mild anemia, mild hypokalemia, normal blood sugars, nothing else remarkable on chemistry. Blood pressures this admission have been over 200 systolic the first day, mostly 180s today. Heart rate has ranged from 80s to 100s. She has been afebrile. PHYSICAL EXAMINATION: On examination, Ms. Reyes is awake and alert. She answered questions appropriately and consistently correctly. She did well on bedside testing of repeating, naming, following commands, making herself understood. She has a staccato pattern of speech with some stammering that is quite inconsistent. Speech is not dysarthric. Memory seems good. Head and neck are unremarkable. She has full visual augustine tested grossly by confrontational finger counting. Extraocular movements are full. Facial motility seems symmetric. Tongue protruded very slightly to the right. She reports equal pinprick appreciation over the face. Shoulder shrug is equal. Strength is normal in the left limbs. On the right, she has wildly fluctuating effort with a lot of vigorous flailing but no definite reproducible motor deficit. She did well on [id number] testing bilaterally. I did not test her gait. She reports equal pinprick appreciation over the right and left limbs. IMPRESSION: 1. Episode of subjective speech difficulty and right limb heaviness which is improving by her report. She has had similar episodes many times in the last 10 months, sometimes associated with possible altered awareness. Some features are consistent with seizure but that is not a definite diagnosis. Her report that she did not have any episodes while taking what sounds like low-dose levetiracetam for a month that is encouraging but not necessarily significant. I think it would be reasonable to resume levetiracetam short-term and complete a seizure workup electively before making a decision about continuing or discontinuing seizure medicine. 2. She has imaging evidence of acute ischemic infarction. Findings are consistent with her reported speech difficulty and right-sided weakness but her clinical examination is very uncertain. We reviewed her list of risk factors for cerebrovascular ischemic problems and I strongly encouraged her to quit smoking cigarettes, and to be aggressive with management of her blood pressure and blood sugar. 3. Records indicate some history of illicit substance use. I encouraged her to stop that, but I do not know that current findings are directly related to illicit substance. 4. I do not have any urgent suggestion. I will order EEG and follow her with you. If she is otherwise ready for discharge, we can resume levetiracetam empirically and arrange EEG as an outpatient, and I can follow her in the office. Thank you for asking me to see Ms. Reyes. cc: MD ELOISE Menchaca III
[2016-07-16] MEDS: ROBAXIN PO SCH (18:41)
[2016-07-16] MEDS: APRESOLINE PO SCH (18:41)
[2016-07-16] MEDS: PLAVIX PO SCH (18:42)
[2016-07-16] MEDS: NS 1,000 ML IV SCH (18:42)
[2016-07-16] MEDS: LOPRESSOR PO SCH (20:36)
[2016-07-16] MEDS: NORVASC PO SCH (20:36)
[2016-07-16] MEDS: KEPPRA PO SCH (20:36)
[2016-07-16] MEDS: LIPITOR PO SCH (20:37)
[2016-07-16] MEDS: XANAX PO SCH (20:39)
[2016-07-17] MEDS: DUONEB (A & A) INH SCH ×6 (02:50→23:05)
[2016-07-17] MEDS: HUMALOG SUBQ SCH ×4 (06:16→21:02)
[2016-07-17 06:31] LABS: HEMATOCRIT 33.8 % (37.0-47.0); MCHC 32.5 g/dL (33-37); MCV 89.2 FL (81-99); MPV 9.8 FL (7.4-10.4); RBC 3.79 XMIL (4.2-5.4)
[2016-07-17 07:07] LABS: AGAP 10; BUN 16 mg/dL (8-22); CALCIUM 8.6 mg/dL (8.8-10.2); CHLORIDE 107 mmol/L (98-107); COSMO 282; POTASSIUM 3.5 mmol/L (3.5-5.1); SODIUM 141 mmol/L (136-145); TCO2 24 mmol/L (25-35)
--- NOTE | 2016-07-17 08:53 | PROGRESS NOTE ---
DATE: 07/17/2016 PATIENT LOCATION: Room 371B. Ms. Reyes is awake and alert. She reports she is doing better with speech and right limb heaviness. She has not had any setbacks. She does not have any new complaints today. We have EEG planned. I do not have any new suggestion right now. Further plans will depend on the EEG findings and on her clinical course. Thanks again for asking me to see Ms. Reyes. cc: Kay Park III, MD
[2016-07-17] MEDS: ROBAXIN PO SCH ×3 (10:11→17:08)
[2016-07-17] MEDS: ASPIRIN PO SCH (10:11)
[2016-07-17] MEDS: PRINIVIL PO SCH (10:11)
[2016-07-17] MEDS: PLAVIX PO SCH (10:11)
[2016-07-17] MEDS: LOPRESSOR PO SCH ×2 (10:12→21:01)
[2016-07-17] MEDS: APRESOLINE PO SCH ×3 (10:12→17:08)
[2016-07-17] MEDS: KEPPRA PO SCH ×2 (10:12→21:01)
[2016-07-17] MEDS: NORVASC PO SCH ×2 (10:12→21:01)
[2016-07-17] MEDS: XANAX PO SCH ×2 (10:14→21:05)
[2016-07-17] MEDS: NS 1,000 ML IV SCH (15:30)
--- NOTE | 2016-07-17 16:37 | PROGRESS NOTE ---
DATE: 07/17/2016 SUBJECTIVE: Today Ms. Reyes referred to be doing a lot better. Continues to have some stuttering, but a whole lot better than before. She says she has been up and she is able to walk around. OBJECTIVE: Vital signs: Blood pressure is 146/94, pulse of 70, respirations 16, temperature 98.2 degrees. General Examination: Ms. Reyes is a 45-year-old female. She is in bed, no distress. HEENT: Mucosa is pink and moist. Anicteric. Acyanotic. Chest: Clear. Cardiovascular: Regular rate and rhythm. Abdomen: Soft. Extremities: No pedal edema. DINING ROOM MANAGER: Patient is alert, awake, is more conversational. Continues to have some stuttering, but I looks like it has improved. She also has mild weakness on the right side. LABORATORY DATA: WBC is 4.74, hemoglobin is 11.0, platelet count all of 213,000. Chemistry is reviewed. Completely unremarkable. Magnesium is 1.6 and potassium is 3.5. ASSESSMENT: 1. Left dominant hemispheric stroke with right-sided hemiparesis and speech disturbance. Will continue with statin, aspirin, clopidogrel, and control risk factors. 2. Hypertension. Is better controlled. 3. Excessive diaphoresis, likely from medication withdrawal. Patient has been started on her home medication and seems to have improved. 4. Hypokalemia. Also has improved. We will start the patient on regular supplement of potassium with magnesium since those are slightly low. 5. Vitamin D deficiency. We will replace this. In general, I think Ms. Reyes is relatively doing fine. There is a plan from Neurology to do an EEG and school social worker is also working on getting the patient placed for inpatient rehab to improve her neurological deficits. cc: Murphy Tracy MD
[2016-07-17] MEDS: LIPITOR PO SCH (21:01)
[2016-07-17] MEDS: MAG-OX PO SCH (21:01)
[2016-07-18] MEDS: DUONEB (A & A) INH SCH ×6 (03:57→23:08)
[2016-07-18 06:19] LABS: HEMATOCRIT 32.8 % (37.0-47.0); HEMOGLOBIN 10.5 g/dL (12.0-16.0); MCH 28.2 PG (27-31); MCV 88.2 FL (81-99); MPV 9.8 FL (7.4-10.4); RBC 3.72 XMIL (4.2-5.4)
[2016-07-18 06:31] LABS: AGAP 9; BUN 11 mg/dL (8-22); CALCIUM 8.2 mg/dL (8.8-10.2); CHLORIDE 107 mmol/L (98-107); COSMO 278; POTASSIUM 3.7 mmol/L (3.5-5.1); SODIUM 140 mmol/L (136-145); TCO2 24 mmol/L (25-35)
[2016-07-18] MEDS: NS 1,000 ML IV SCH ×3 (06:50→17:39)
[2016-07-18] MEDS: HUMALOG SUBQ SCH ×4 (06:51→20:33)
[2016-07-18] MEDS: PROTONIX PO SCH (09:14)
[2016-07-18] MEDS: MAG-OX PO SCH ×2 (09:14→20:31)
[2016-07-18] MEDS: PLAVIX PO SCH (09:15)
[2016-07-18] MEDS: KEPPRA PO SCH ×2 (09:15→20:30)
[2016-07-18] MEDS: VITAMIN D PO SCH (09:15)
[2016-07-18] MEDS: APRESOLINE PO SCH ×3 (09:15→17:39)
[2016-07-18] MEDS: ASPIRIN PO SCH (09:15)
[2016-07-18] MEDS: NORVASC PO SCH ×2 (09:15→20:31)
[2016-07-18] MEDS: ROBAXIN PO SCH ×3 (09:15→17:39)
[2016-07-18] MEDS: PRINIVIL PO SCH (09:15)
[2016-07-18] MEDS: XANAX PO SCH ×2 (09:15→20:30)
[2016-07-18] MEDS: KLOR-CON PO SCH (09:15)
[2016-07-18] MEDS: LOPRESSOR PO SCH ×2 (09:15→20:30)
--- NOTE | 2016-07-18 11:41 | PROGRESS NOTE ---
DATE: 07/18/2016 Ms. Reyes is awake, alert, attentive, and appropriate. Speech still has a staccato pattern with uncertain dysarthric features and there is no definite language disturbance otherwise. She has good power in the limbs, but still has inconsistent effort when testing the right arm. I reviewed the imaging findings with her today. Her EEG showed some beta rhythm typical of her alprazolam doses, but there was no focal slowing to correlate with recent left hemisphere ischemic event and there was no epileptiform discharge to prove seizure as the reason for any of her episodes. IMPRESSIONS: 1. Clinical appearance of speech difficulty and right arm weakness with some variability on examination and uncertain deficit. 2. Imaging evidence of acute subcortical left hemisphere infarction, which may or may not be symptomatic and may or may not explain her clinical findings. She has risk factors for cerebrovascular ischemic problems, including hypertension, cigarette smoking , and possibly ischemic heart disease. Lipid profile was unremarkable this admission, but she may have a past history of dyslipidemia. I encouraged her to be aggressive with management. 3. History of spells sometimes followed by right limb heaviness and speech difficulty. Some of her history is consistent with seizure. Although EEG is negative, in light of the frequency of episodes in the last 10 months, I think it would be reasonable to continue levetiracetam 500 mg b.i.d., which is a relatively low dose and she is tolerating that so far this admission. Her report is that she did not have any spells during short time treated with levetiracetam in the past. 4. History of illicit substance use. I encouraged her to stop that. Thanks for asking me to see Ms. Reyes. I agree with plans for rehabilitation. cc: MD ELOISE Menchaca III
--- NOTE | 2016-07-18 12:44 | EEG REPORT ---
DATE: 07/16/2016 EEG #[id number]: COMMENT: This is a digitally recorded EEG on a 45-year-old patient with history of episodes, question of seizure, MRI evidence of recent subcortical left hemisphere infarction. FINDINGS: During waking, medium amplitude 10 Hz posterior rhythm is present bilaterally with uncertain reactivity to eye opening. Background contains polymorphic and rhythmic theta frequencies over the frontal and central regions symmetrically. There is central beta at 20 Hz intermittently throughout the record. Drowsing occurred with appearance of more generalized slowing. Stage 2 sleep was not recorded. Hyperventilation was not done. Photic stimulation did not significantly alter the record. No definite epileptiform discharge was identified. INTERPRETATION: Normal electroencephalogram. CORRELATION: Beta rhythm is typical benzodiazepine effect. Subcortical ischemic lesion would often not alter the EEG. The absence of epileptiform discharges on a single EEG does not exclude a clinical diagnosis of seizures. cc: Kay Park III, MD
--- NOTE | 2016-07-18 15:43 | PROGRESS NOTE ---
DATE: 07/16/2016 SUBJECTIVE: Ms. Reyes is in good spirits. She has been practicing with her writing and her speech. She feels like it is improving. She has done some ambulation. Plans for her to go to [facility] for rehab on Thursday. She did have family and grandchildren visiting her. OBJECTIVE: Afebrile. Temperature 98.2 degrees, pulse 82, respirations 16. Blood pressure 134/55. HEENT: Pupils are equal and round. Lungs are clear in all lung augustine. Cardiovascular: Regular rhythm and rate without murmur or S3. Abdomen is soft. Skin is warm and dry. LABORATORY DATA: Review of her labs from this morning: White count 4540, hematocrit 32, platelet count 222,000. Sodium 140, potassium 3.7, chloride 107, bicarb 24. BUN 11. Creatinine 0.6. Blood sugar 109, 88, 69, 97. ASSESSMENT AND PLAN: 1. Left dominant hemispheric stroke. Right-sided hemiparesis. Speech disturbance. Will continue with the statin, aspirin, Plavix. Continue physical therapy and speech therapy. 2. Hypertension. Blood pressure well controlled. 3. Excessive diaphoresis likely from medication withdrawal. The patient has been started on her home medications and seems to have improved. 4. Hypokalemia which is supplemented and resolved. 5. Vitamin D deficiency which has been replaced. DISPOSITION: Hope to go to rehab on Thursday. REVIEW OF HER MEDICATIONS: I do not see any change at this point. She is on levothyroxine 500 mg b.i.d., Prinivil 20 mg a day, magnesium oxide 400 mg b.i.d., Robaxin 750 mg t.i.d., Lopressor 50 mg b.i.d. He is on normal saline 75 mL an hour, Protonix 40 mg a day, potassium chloride 20 mEq daily, Apresoline 10 mg p.o. t.i.d., Plavix 75 mg a day, Cholecalciferol 1000 units daily, Lipitor 40 mg at bedtime, aspirin 81 mg a day, Norvasc 10 mg b.i.d., Xanax 1 mg b.i.d. cc: Kory Grayson MD
[2016-07-18] MEDS: LIPITOR PO SCH (20:30)
[2016-07-19] MEDS: DUONEB (A & A) INH SCH ×6 (03:53→22:59)
[2016-07-19] MEDS: PROTONIX PO SCH (06:38)
[2016-07-19] MEDS: NS 1,000 ML IV SCH ×2 (06:38→19:35)
[2016-07-19] MEDS: HUMALOG SUBQ SCH ×4 (06:38→21:33)
[2016-07-19] MEDS: PLAVIX PO SCH (08:38)
[2016-07-19] MEDS: NORVASC PO SCH ×2 (08:38→21:34)
[2016-07-19] MEDS: KLOR-CON PO SCH (08:38)
[2016-07-19] MEDS: APRESOLINE PO SCH ×3 (08:38→17:39)
[2016-07-19] MEDS: MAG-OX PO SCH ×2 (08:38→21:34)
[2016-07-19] MEDS: PRINIVIL PO SCH (08:38)
[2016-07-19] MEDS: LOPRESSOR PO SCH ×2 (08:38→21:33)
[2016-07-19] MEDS: ASPIRIN PO SCH (08:38)
[2016-07-19] MEDS: ROBAXIN PO SCH ×3 (08:38→17:39)
[2016-07-19] MEDS: KEPPRA PO SCH ×2 (08:38→21:33)
[2016-07-19] MEDS: VITAMIN D PO SCH (08:38)
[2016-07-19] MEDS: XANAX PO SCH ×2 (08:38→21:33)
--- NOTE | 2016-07-19 17:12 | PROGRESS NOTE ---
DATE: 07/19/2016 Today Ms. Reyes to be doing fine. Denies any remarkable complaints except for continuing having difficulty to make clear speech. OBJECTIVE: Vital signs: Blood pressure is 136/85, pulse of 81, respirations 15, temperature 97.7 degrees. General: Ms. Reyes is a 45-year-old, female. She is in bed, no distress. HEENT: Mucosa is pink and moist. Anicteric. Acyanotic. Neck: Supple. Chest: Clear. Cardiovascular: Regular rate and rhythm. Abdomen: Soft, nontender. Extremities: No pedal edema. PROJECT LEADER: Patient is awake and alert, oriented. Continues to have a scanning/stuttering speech and also some mild weakness to the right upper and lower extremities. Reflexes are normal. LABORATORY DATA: None for today. ASSESSMENT: 1. Left dominant hemispheric stroke with right side hemiparesis and speech disturbance. Will continue with statin, aspirin, clopidogrel and control the risk factors. 2. Hypertension. Controlled. 3. Vitamin D deficiency. We will continue to replace. 4. Hypokalemia and hypomagnesemia improved. 5. Lots of prescription drug use. The patient has been counseled. So I think Ms. Reyes is clinically stable. We are still pending rehab arrangement so that she will continue with her neurological improvement. cc: Murphy Tracy MD
[2016-07-19] MEDS: LIPITOR PO SCH (21:34)
[2016-07-19] MEDS: NORCO-7.5 PO PRN (21:40)
[2016-07-20] MEDS: DUONEB (A & A) INH SCH ×6 (03:46→22:26)
[2016-07-20] MEDS: NORCO-7.5 PO PRN ×2 (04:56→20:51)
[2016-07-20] MEDS: PROTONIX PO SCH (06:22)
[2016-07-20] MEDS: HUMALOG SUBQ SCH ×4 (06:25→20:45)
[2016-07-20 07:45] LABS: AGAP 11; BUN 10 mg/dL (8-22); CALCIUM 8.6 mg/dL (8.8-10.2); CHLORIDE 106 mmol/L (98-107); COSMO 281; POTASSIUM 3.8 mmol/L (3.5-5.1); SODIUM 142 mmol/L (136-145); TCO2 25 mmol/L (25-35)
[2016-07-20] MEDS: NORVASC PO SCH ×2 (08:46→20:46)
[2016-07-20] MEDS: XANAX PO SCH ×2 (08:46→20:46)
[2016-07-20] MEDS: PRINIVIL PO SCH (08:46)
[2016-07-20] MEDS: KLOR-CON PO SCH (08:46)
[2016-07-20] MEDS: ROBAXIN PO SCH ×3 (08:46→17:08)
[2016-07-20] MEDS: LOPRESSOR PO SCH ×2 (08:47→20:46)
[2016-07-20] MEDS: VITAMIN D PO SCH (08:47)
[2016-07-20] MEDS: MAG-OX PO SCH ×2 (08:47→20:46)
[2016-07-20] MEDS: PLAVIX PO SCH (08:47)
[2016-07-20] MEDS: APRESOLINE PO SCH ×3 (08:47→17:08)
[2016-07-20] MEDS: KEPPRA PO SCH ×2 (08:47→20:46)
--- NOTE | 2016-07-20 17:39 | PROGRESS NOTE ---
DATE: 07/20/2016 SUBJECTIVE: Today Ms. Reyes refers to be doing a whole lot better. Continues to have some stuttering speech. OBJECTIVE: Vital signs: Blood pressure is 146/89, pulse of 72, respirations 16 , temperature 97.5 degrees. General: Mr. Reyes is a 45-year-old female. She is in bed, no distress. HEENT: Mucosa is pink and moist. Anicteric. Acyanotic. Neck: Supple. Chest : Clear. Cardiovascular: Regular rate and rhythm. Abdomen: Soft, nontender. Extremities: No pedal edema. 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 Continues to have stuttering speech and also right-sided weakness of about 4-/5. LABORATORY DATA: No CBC was done today. Chemistry is completely normal. ASSESSMENT: 1. Left dominant hemispheric stroke with right-sided hemiparesis and speech disturbance. 2. Hypertension, controlled. 3. Vitamin D deficiency. We will continue to replace. 4. Hypokalemia and hypomagnesemia. Improved. 5. Lots of prescription drug use. PLAN: In general, I think Ms. Reyes is clinically stable. She continues to have right-sided weakness and stuttering speech. We are still waiting for rehab arrangement to discharge the patient hopefully tomorrow. cc: Murphy Tracy MD MTDD
[2016-07-20] MEDS: LIPITOR PO SCH (20:46)
[2016-07-21] MEDS: DUONEB (A & A) INH SCH ×6 (03:24→23:12)
[2016-07-21] MEDS: NORCO-7.5 PO PRN ×2 (04:40→22:44)
[2016-07-21] MEDS: HUMALOG SUBQ SCH ×4 (06:41→21:39)
[2016-07-21] MEDS: PROTONIX PO SCH (06:41)
[2016-07-21] MEDS: KLOR-CON PO SCH (08:51)
[2016-07-21] MEDS: KEPPRA PO SCH ×2 (08:51→21:37)
[2016-07-21] MEDS: PRINIVIL PO SCH (08:51)
[2016-07-21] MEDS: XANAX PO SCH ×2 (08:51→21:37)
[2016-07-21] MEDS: NORVASC PO SCH ×2 (08:51→21:37)
[2016-07-21] MEDS: VITAMIN D PO SCH (08:51)
[2016-07-21] MEDS: APRESOLINE PO SCH ×3 (08:51→18:08)
[2016-07-21] MEDS: ROBAXIN PO SCH ×3 (08:52→18:08)
[2016-07-21] MEDS: LOPRESSOR PO SCH ×2 (08:53→21:36)
[2016-07-21] MEDS: PLAVIX PO SCH (08:53)
[2016-07-21] MEDS: MAG-OX PO SCH ×2 (08:53→21:36)
--- NOTE | 2016-07-21 13:26 | PROGRESS NOTE ---
DATE: 07/21/2016 SUBJECTIVE: Today Ms. Reyes refers to be doing a whole lot better. She was actually sitting up in a chair. Has just taking a bath. OBJECTIVE: Vital signs: Blood pressure 137/99, pulse of 73, respirations 16, temperature 97.6 degrees. General: Ms. Reyes is a 45-year-old female. She was sitting up in a chair, no distress. HEENT: Mucosa is pink and moist. Anicteric. Acyanotic. Neck: Supple. Chest: Clear. Cardiovascular: Regular rate and rhythm. Abdomen: Soft. 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 Speech is more fluent than yesterday. Continues to have some residual right- sided weakness. LABORATORY DATA: None for today. ASSESSMENT: 1. Left dominant hemispheric stroke with right-sided hemiparesis and speech disturbance. 2. Hypertension. Controlled. 3. Vitamin D deficiency. 4. Hypokalemia and hypomagnesemia. Resolved. 5. Prescription drug use/abuse. PLAN: In general today Ms. Reyes is clinically stable. Continues to have some mild right-sided motor deficit. She is pending rehab approval. cc: Murphy Tracy MD
[2016-07-21] MEDS: LIPITOR PO SCH (21:36)
[2016-07-22] MEDS: DUONEB (A & A) INH SCH ×3 (03:47→10:53)
[2016-07-22] MEDS: HUMALOG SUBQ SCH ×2 (06:14→13:16)
[2016-07-22] MEDS: PROTONIX PO SCH (06:14)
[2016-07-22] MEDS: APRESOLINE PO SCH ×2 (08:41→13:21)
[2016-07-22] MEDS: KEPPRA PO SCH (08:41)
[2016-07-22] MEDS: KLOR-CON PO SCH (08:42)
[2016-07-22] MEDS: LOPRESSOR PO SCH (08:43)
[2016-07-22] MEDS: MAG-OX PO SCH (08:43)
[2016-07-22] MEDS: NORVASC PO SCH (08:44)
[2016-07-22] MEDS: PLAVIX PO SCH (08:45)
[2016-07-22] MEDS: PRINIVIL PO SCH (08:45)
[2016-07-22] MEDS: ROBAXIN PO SCH ×2 (08:46→13:21)
[2016-07-22] MEDS: VITAMIN D PO SCH (08:46)
[2016-07-22] MEDS: XANAX PO SCH (08:48)
--- NOTE | 2016-07-22 10:49 | PROGRESS NOTE ---
DATE: 07/22/2016 SUBJECTIVE: Today, Ms. Reyes refers to be doing a whole lot better. She does not have any more stuttering, has very clear speech. Continues to have some residual right-sided weakness. OBJECTIVE: Vital Signs: Blood pressure is 113/72, pulse of 66, respirations of 18, temperature 97.4 degrees. General Examination: Ms. Reyes is a 45-year-old, female. She is in bed, no distress. HEENT: Mucosa is pink and moist. Anicteric and acyanotic. Neck: Supple. Chest: Good air entry bilaterally. No crepitations and no rhonchi. Cardiovascular: Regular rate and rhythm. Abdomen: Soft. Extremities: No pedal edema. PIER WORKER: Patient is alert, is oriented. Speech is fluent and logical. Continues to have right side hemiparesis. Laboratory Data: Glucose is 110. CURRENT MEDICATIONS: 1. Corinne p.r.n. 2. Xanax 1 mg b.i.d. 3. Amlodipine 10 mg b.i.d. 4. Atorvastatin 40 mg at bedtime. 5. Vitamin D 1000 units daily. 6. Plavix 75 mg daily. 7. Apresoline 10 mg 3 times per day. 8. Insulin sliding scale. 9. Keppra 500 mg b.i.d. 10. Lisinopril 20 mg daily. 11. Methocarbamol 750 three times per day. 12. Metoprolol 50 mg b.i.d. 13. Pantoprazole 40 mg daily. ASSESSMENT: 1. Left dominant hemispheric stroke with right-sided hemiparesis and speech disturbance. Speech has progressively improved. Patient will continue with physical therapy. We are pending rehab arrangement for disposition. 2. Hypertension, controlled. 3. Vitamin D deficiency. 4. Hypokalemia and hypomagnesemia, resolved. 5. Prescription drug use/abuse. Patient has been counseled. cc: Murphy Tracy MD
--- NOTE | 2016-07-22 14:54 | DISCHARGE SUMMARY ---
ADMISSION DATE: 07/15/2016 DISCHARGE DATE: 07/22/2016 CONSULTATIONS: Kay Park III, MD with Neurology. PERTINENT PROCEDURES: 1. Head CT negative. 2. Brain MRI shows small recent ischemic area in the mid left parietal lobe extending toward the left thalamus involving or adjacent to the posterior horn of the internal capsule. 3. Brain MRA negative. 4. Neck MRA normal. 5. Echocardiogram showed an EF of 63%. 6. EEG was normal. DISCHARGE DIAGNOSES: 1. Left dominant hemispheric stroke with right-sided hemiparesis and speech disturbance. Speech has progressively improved. The patient has worked with physical therapy. She is being discharged to [facility] rehab. She will continue on Plavix. 2. Hypertension, controlled. 3. Vitamin D deficiency. 4. Hypokalemia and hypomagnesemia, resolved. 5. Prescription drug use abuse. Patient has been educated about using prescribed medicine appropriately. HOSPITAL COURSE: Briefly, Ms. 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 The patient came to the ED stating that she lost feeling in her right arm and legs as well as the right side of her face. She did not seek emergent help with that time. She went to bed as normal and woke up in the morning with a very hard stutter, some mild confusion, and worsening right-sided weakness. She was brought to the ED by her mother. Per the patient report, she had not been able to afford medications for blood pressure and diabetes for 3 months and reported history of synthetic marijuana abuse but she has not used in 5 months. She had a normal head CT. Her labs were essentially unremarkable with exception of hypokalemia and vital signs were stable. The patient was initially admitted for stroke-like symptoms and continued on thorough stroke workup with a MRI and MRA and neck MRA as well as echocardiogram. They were all normal except the MRI did show a recent infarct in the mid left parietal lobe extending toward the left thalamus involving or adjacent to the posterior horn of the internal capsule. She also underwent an EEG that was normal. She was followed by Neurology. She was initiated on Plavix. The patient has worked with Physical Therapy as well as Speech and evaluated by occupational therapy. Wood Scrap Handler was consulted for placement for [facility] rehab. The patient has slowly improved. She is appropriate today for discharge to [facility]. VITAL SIGNS: Temperature is 97.4 degrees, heart rate 66, respirations 18, blood pressure 113/72, O2 is 100% on room air. DISCHARGE DIET: Regular. DISCHARGE MEDICATIONS: As per Dr. Tracy. Please see MAR. FOLLOWUP: The patient is being discharged to [facility]. She will need to follow up with her primary care physician, Dr. Brayden Tucker as well as Dr. Kay Park as indicated and be compliant with her medications and patient has been educated about medication abuse and use. The patient can return to the ED for any worsening of symptoms. TIME SPENT: 30 minutes. Dictated by CARINA Blunt for Murphy Tracy MD cc: Murphy Tracy MD
[2016-07-22 15:32] VITALS: BP 124/70
[2016-07-23] MEDS ORDERED: NORVASC PO SCH (09:00)
== END 2016-07-22 15:02 ==
LOC: ED 12:13 → 3N 18:11 → SUATTDRO 18:11
PROVIDERS: ATTEND Internal Medicine

== ENCOUNTER 2018-04-05 18:37 | Observation (INO) ==
[2018-04-05] MEDS ORDERED: NS 1,000 ML IV PRN ×2 (18:52→19:48)
--- NOTE | 2018-04-05 19:44 | Diag Imaging Result Doc PS360 ---
CT HEAD W/O CONTRAST - 04/05/2018 INDICATION: cva COMPARISON: 02/26/2018 FINDINGS: The ventricles and sulci are normal in size and contour. No intracranial mass or hemorrhage. The skull is intact. The sinuses mastoids and middle ears are clear. IMPRESSION: Negative exam. This exam was performed using automated exposure control, adjustment of mA or kV according to patient size, and/or use of iterative reconstruction technique Electronically signed by Willian Chapman 04/05/2018 7:42 PM
[2018-04-05] MEDS ORDERED: LABETALOL IV ONE (19:49)
--- NOTE | 2018-04-05 20:02 | PROVIDER DOCUMENTATION ---
HPI-Neurological Disorder - General Chief Complaint: Stroke-Like Symptoms Stated Complaint: STROKE LIKE SX Time Seen by Provider: 04/05/18 19:21 Source: patient, old records Allergies/Adverse Reactions: Patient Allergies Allergy/AdvReac Type Severity Reaction Status Date / Time adhesive tape Allergy ITCHING Verified 04/05/18 18:50 aspirin AdvReac Unknown Unknown Verified 04/05/18 18:50 Home Medications: Home Medication List Medication Instructions Recorded Confirmed Last Taken Type Clopidogrel Bisulfate [Plavix] 75 mg PO DAILY 08/13/15 02/26/18 02/16/18 History Alprazolam [Xanax] 1 mg PO QHS 03/14/16 02/26/18 02/15/18 History Amlodipine [Norvasc] 10 mg PO DAILY tablet 07/22/16 02/26/18 02/16/18 Rx Clonidine [Catapres] 0.1 mg PO BID 09/16/17 02/26/18 02/16/18 History Metoclopramide HCl [Reglan] 5 mg PO DAILY PRN 09/16/17 02/26/18 02/11/18 History Potassium Chloride [K-Tab ER] 10 meq PO DAILY 09/16/17 02/26/18 02/16/18 History Promethazine [Phenergan] 25 mg PO Q6H PRN PRN #5 tablet 09/18/17 02/26/18 Rx Hydrocodone/Acetaminophen [[place] 1 tab PO TID 01/01/18 02/26/18 02/15/18 History 10-325 Tablet] Levetiracetam [Keppra] 1,000 mg PO BID 02/16/18 02/26/18 02/15/18 History Omeprazole 40 mg PO DAILY 02/16/18 02/26/18 02/16/18 History Fluconazole [Diflucan] 100 mg PO DAILY #4 tab 02/17/18 02/26/18 Unknown Rx Losartan/Hydrochlorothiazide 1 ea PO DAILY #30 tab 02/17/18 02/26/18 Unknown Rx [Losartan-Hctz 100-25 mg Tab] - History of Present Illness-Neuro Nature of Presenting Problem: 47 yo AAF reports to the ER with obvious right hemiparesis and HTN 225/115, HR115. She apparently lost custody of her grandson today, the father gaining custody and her daughter returning to [facility]. She developed weakness and numbness around noon today and felt that her BP was too high. She denies missing any of her meds (losarten, hctz, amlodipine, and clonidine. She is not on a beta alex but is on Plavix. She did have an episode of hypertensive urgency last January. She reports two previous strokes, has had a PFO repair by Dr Rosas and a normal renal angiogram Review of Systems - Adult - REVIEW OF SYSTEMS - ADULT Constitutional: reports: fatique, weight gain Eyes: reports: no symptoms reported Ears, Nose, Mouth & Throat: reports: no symptoms reported Cardiovascular: reports: no symptoms reported Respiratory: reports: no symptoms reported Gastrointestinal: reports: no symptoms reported Genitourinary: reports: no symptoms reported Musculoskeletal: reports: no symptoms reported Integumentary: reports: no symptoms reported Neurological: reports: see HPI, numbness, paresthesia, seizure Psychiatric: reports: see HPI, anxiety, depression Endocrine: reports: no symptoms reported Past History - Adult - PAST MEDICAL HISTORY-ADULT Review of Records: reports: Old Records Reviewed, Nursing Assessment Review, Medications Reviewed Major Childhood Illnesses: reports: denies history Cardiovascular: reports: cardiac disease, HTN (for years and has never been controlled despite various multiple medication combinations.), hyperlipidemia, [place] Respiratory: reports: sleep apnea Gastrointestinal: reports: denies history Obstetrical/Gynecological: reports: denies history, ectopic Genitourinary: reports: denies history Musculoskeletal: reports: chronic pain, fibromyalgia, intervertebral disc disease, neck/back injury, other (degenerative joint disease) Neurological: reports: CVA, Seizures/Epilepsy, TIA Psychiatric: reports: anxiety, depression Endocrine/Immune: reports: thyroid disorder, Diabetes Other Conditions: reports: eye problems/injury - PRIOR SURGERIES/PROCEDURES Surgical/Procedure History: reports: cholecystectomy, hysterectomy, , indwelling device (titanium plate in heart), tonsillectomy, hernia repair, orthopedic (extremity) (knee arthroscopy x5, shoulder x2), joint replacement ( knee), breast (reduction), other (cardiac implant; ectopic ) - IMMUNIZATION STATUS Childhood Immunizations: See Nurse Assessment Flu Vaccine: See Nurse Assessment - FAMILY HISTORY Family History: reviewed, not pertinent, seizures Physical Exam- Neurological - Physical Exam-Neuro Initial Vital Signs Reviewed: Yes General Appearance: no apparent distress Eye Exam: bilateral eye: normal inspection, PERRL, EOMI HENMT: normocephalic/atraumatic, moist mucous membranes, normal ENT inspection Head Injury: no evidence of injury Neck: non-tender, full range of motion. negative: carotid bruit Respiratory: chest non-tender, lungs clear, normal breath sounds Cardiovascular: normal peripheral pulses, regular rate, rhythm, no gallop, no JVD, systolic murmur. 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 negative: facial asymmetry, hearing deficit (R), hearing deficit (L), tongue deviation to R, tongue deviation to L Coordination/Gait: abnormal gait, ABN nose to finger (R). negative: normal finger to nose, normal gait, ABN nose to finger (L) Motor/Sensory: pronator drift (R), weak motor strength RUE, weak motor strength RLE Neurologic: security guard supervisor II-XII nml as tested Integumentary: normal color, normal turgor - Glascow Coma Scale Total Glascow Score: 15 Progress - PLAN OF CARE/RESULTS Progress/Plan/Lab Results: Vital Signs - 8 hr 04/05/18 18:43 04/05/18 20:53 04/05/18 21:02 Temperature 98.0 F Pulse Rate 103 H 86 90 Respiratory Rate 18 18 18 Blood Pressure 176/101 149/91 130/93 O2 Sat by Pulse Oximetry 100 98 98 04/05/18 22:15 Temperature Pulse Rate 90 Respiratory Rate 19 Blood Pressure 117/79 O2 Sat by Pulse Oximetry 98 Laboratory Results - last 24 hr 04/05/18 04/05/18 04/05/18 18:51 20:30 20:30 WBC RBC Hgb Hct MCV MCH MCHC RDW Std Deviation Plt Count MPV Immature Gran % (Auto) Neut % (Auto) Lymph % (Auto) [place] % (Auto) Eos % (Auto) Baso % (Auto) Immature Gran # (Auto) Neut # (Auto) Lymph # (Auto) [place] # (Auto) Eos # (Auto) Baso # (Auto) PT INR PTT (Actin FS) Sodium 140 Potassium 3.7 Chloride 106 Carbon Dioxide 23 L Anion Gap 11 BUN 8 Creatinine 0.6 Estimated GFR/1.73 m2 > 60 BUN/Creatinine Ratio 13 Glucose 85 POC Glucose 105 H Calculated Osmolality 277 Calcium 9.0 Total Bilirubin 0.20 AST 17 ALT 25 Alkaline Phosphatase 61 Troponin T < 0.010 Total Protein 6.2 L Albumin 3.6 Globulin 3.0 Albumin/Globulin Ratio 1.0 Urine Source Urine Color Urine Clarity Urine Turbidity Urine pH Ur Specific [place] Urine Protein Ur Glucose (Stick) Urine Ketones Ur Ketones (Stick) Urine Blood Urine Nitrite Urine Bilirubin Urine Urobilinogen Urobilinogen Dipstick Urine Leukocytes Urine WBC (Auto) Urine RBC (Auto) U Epithel Cells (Auto) Urine Bacteria (Auto) Urine Microscopic RBC Urine WBC Urine Microscopic WBC Ur Epithelial Cells Urine Bacteria Urine Trichomonas Urine Glucose Urine Test 04/05/18 04/05/18 04/05/18 20:30 20:30 20:30 WBC 6.16 RBC 3.90 L Hgb 11.1 L Hct 33.2 L MCV 85.1 MCH 28.5 MCHC 33.4 RDW Std Deviation 14.4 Plt Count 263 MPV 9.8 Immature Gran % (Auto) 0.3 Neut % (Auto) 54.3 Lymph % (Auto) 34.3 [place] % (Auto) 10.2 H Eos % (Auto) 0.6 Baso % (Auto) 0.3 Immature Gran # (Auto) 0.02 Neut # (Auto) 3.34 Lymph # (Auto) 2.11 [place] # (Auto) 0.63 H Eos # (Auto) 0.04 Baso # (Auto) 0.02 PT 12.1 INR 0.85 PTT (Actin FS) 38.0 Sodium Potassium Chloride Carbon Dioxide Anion Gap BUN Creatinine Estimated GFR/1.73 m2 BUN/Creatinine Ratio Glucose POC Glucose Calculated Osmolality Calcium Total Bilirubin AST ALT Alkaline Phosphatase Troponin T Total Protein Albumin Globulin Albumin/Globulin Ratio Urine Source Cancelled Urine Color Cancelled Urine Clarity Urine Turbidity Cancelled Urine pH Cancelled Ur Specific [place] Cancelled Urine Protein Cancelled Ur Glucose (Stick) Cancelled Urine Ketones Ur Ketones (Stick) Cancelled Urine Blood Cancelled Urine Nitrite Cancelled Urine Bilirubin Cancelled Urine Urobilinogen Urobilinogen Dipstick Cancelled Urine Leukocytes Cancelled Urine WBC (Auto) Cancelled Urine RBC (Auto) Cancelled U Epithel Cells (Auto) Cancelled Urine Bacteria (Auto) Cancelled Urine Microscopic RBC Urine WBC Urine Microscopic WBC Ur Epithelial Cells Urine Bacteria Urine Trichomonas Urine Glucose Urine Test 04/05/18 04/05/18 04/05/18 20:30 20:30 20:32 WBC RBC Hgb Hct MCV MCH MCHC RDW Std Deviation Plt Count MPV Immature Gran % (Auto) Neut % (Auto) Lymph % (Auto) [place] % (Auto) Eos % (Auto) Baso % (Auto) Immature Gran # (Auto) Neut # (Auto) Lymph # (Auto) [place] # (Auto) Eos # (Auto) Baso # (Auto) PT INR PTT (Actin FS) Sodium Potassium Chloride Carbon Dioxide Anion Gap BUN Creatinine Estimated GFR/1.73 m2 BUN/Creatinine Ratio Glucose POC Glucose 75 Calculated Osmolality Calcium Total Bilirubin AST ALT Alkaline Phosphatase Troponin T Total Protein Albumin Globulin Albumin/Globulin Ratio Urine Source CLEAN CATCH Urine Color YELLOW Urine Clarity CLEAR Urine Turbidity Urine pH 7.0 Ur Specific [place] 1.010 Urine Protein NEGATIVE Ur Glucose (Stick) Urine Ketones NEGATIVE Ur Ketones (Stick) Urine Blood NEGATIVE Urine Nitrite NEGATIVE Urine Bilirubin NEGATIVE Urine Urobilinogen NORMAL Urobilinogen Dipstick Urine Leukocytes Urine WBC (Auto) Urine RBC (Auto) U Epithel Cells (Auto) Urine Bacteria (Auto) Urine Microscopic RBC <10 Urine WBC 2+ A Urine Microscopic WBC 10-20 A Ur Epithelial Cells <10 Urine Bacteria NEGATIVE Urine Trichomonas PRESENT Urine Glucose NEGATIVE Urine Test NEGATIVE Orders Category Date Time Status Cardiac Monitoring DIRECTED Care 04/05/18 18:52 Active Finger Stick Blood Sugar (ED) DIRECTED Care 04/05/18 18:52 Active Oxygen Therapy- ED Nursing DIRECTED Care 04/05/18 18:52 Active Saline Loc NOW Care 04/05/18 18:52 Active CHEST-PORTABLE [RAD] Stat Exams 04/05/18 18:[address] HEAD W/O CONTRAST [CT] Stat Exams 04/05/18 18:[address] HEAD W/O CONTRAST [CT] Stat Exams 04/05/18 23:06 Ordered CBC WITH ELECTRONIC DIFF [HEME] Stat Lab 04/05/18 20:30 Completed COMPREHENSIVE METABOLIC PANEL [CHEM] Stat Lab 04/05/18 20:30 Completed TEST-URINE [PREG] Stat Lab 04/05/18 20:30 Completed PROTIME WITH INR [COAG] Stat Lab 04/05/18 20:30 Completed PTT [COAG] Stat Lab 04/05/18 20:30 Completed TROPONIN T Stat Lab 04/05/18 20:[address] W/POSS RFLX CULT [URINALYSIS] Stat Lab 04/05/18 20:30 Completed URINE CULTURE [RM] Routine Lab 04/05/18 21:23 Ordered 0.9% Sodium Chloride Inj [Ns] 1,000 ml Med 04/05/18 18:52 Discontinued IV 1,000 mls/hr 0.9% Sodium Chloride Inj [Ns] 1,000 ml Med 04/05/18 19:48 Active IV 50 mls/hr Labetalol Med 04/05/18 19:49 Discontinued 20 mg IV NOW ONE EKG [EKG] Stat Ther 04/05/18 18:52 Ordered Result Diagrams: 04/05/18 20:30 04/05/18 20:30 - XRAY 1 XRAY Study: Chest Impression: Normal - CT/MRI 1 CT Study: Head Impression: Normal Departure - Departure Date of Disposition Decision: 04/05/18 Time of Disposition Decision: 23:46 DIAGNOSIS: CVA (cerebral vascular accident) Qualifiers: CVA mechanism: unspecified Qualified Code(s): I63.9 - Cerebral infarction, unspecified Disposition: ADMITTED INPATIENT 09 Certified Medical Emergency: Emergent Condition: Fair Referrals and Follow-Ups: Brayden Tucker MD [Primary Care Provider] - - Critical Care Note This patient required my direct & personal management of CC.: Yes Total Time (mins): 30 Critical Care Statement: This patient required my direct personal management to treat or rule out processes, the absence of which, could potentiallly result in sudden, clinically significant life or limb threatening deterioration. Attestation - Physician/ ERNIE Attestation The physician spent face to face time with patient:: Yes Advanced Practice Provider documentation review:: Supervising physician onsite and consulted in the evaluation and care of this patient. The physician did have a face to face encounter with the patient.
[2018-04-05 20:45] LABS: BASO# 0.02 X1000 (0.0-0.2); BASO% 0.3 % (0.0-0.8); EOS# 0.04 X1000 (0.0-0.7); EOS% 0.6 % (0.0-10.0); HEMATOCRIT 33.2 % (37.0-47.0); HEMOGLOBIN 11.1 g/dL (12.0-16.0); IMM GRAN# 0.02 X1000 (0.0-0.04); IMM GRAN% 0.3 % (0.0-0.5); LYMPH# 2.11 X1000 (1.2-3.4); LYMPH% 34.3 % (20.5-51.1); MCH 28.5 PG (27-31); MCHC 33.4 g/dL (33-37); MCV 85.1 FL (81-99); MONO# 0.63 X1000 (0.11-0.59); MONO% 10.2 % (1.7-9.3); MPV 9.8 FL (7.4-10.4); NEUT# 3.34 X1000 (1.4-6.5); NEUT% 54.3 % (42.2-75.2); PLT 263 X1000 (130-400); RDW 14.4 % (11.5-14.5); WBC 6.16 X1000 (4.8-10.8)
--- NOTE | 2018-04-05 21:10 | Diag Imaging Result Doc PS360 ---
CHEST-PORTABLE - 04/05/2018 INDICATION: cva COMPARISON: 02/16/2018 FINDINGS: The lungs are clear. Heart size is normal. No pneumothorax or pleural effusion. IMPRESSION: Negative exam. Electronically signed by Willian Chapman 04/05/2018 9:07 PM
[2018-04-05 21:12] LABS: INR 0.85; PROTIME 12.1 Seconds (11.0-16.0)
[2018-04-05 21:18] LABS: URINE SOURCE CLEAN CATCH
[2018-04-05 21:19] LABS: BILIRUBIN URINE NEGATIVE (NEGATIVE); BLOOD URINE NEGATIVE (NEGATIVE); CLARITY CLEAR (CLEAR); COLOR YELLOW; GLUCOSE URINE NEGATIVE (NEGATIVE); KETONE URINE NEGATIVE (NEGATIVE); LEUKOCYTES URINE 2+ (NEGATIVE); NITRITE URINE NEGATIVE (NEGATIVE); PROTEIN URINE NEGATIVE (NEGATIVE); UROBILINOGEN URINE NORMAL
[2018-04-05 21:21] LABS: URINE TRICHOMONAS PRESENT
[2018-04-05 21:23] LABS: URINE BACTERIA NEGATIVE /HFP; URINE EPITHELIAL CELLS <10 /HPF (<10); URINE RBC <10 /HPF (<10)
[2018-04-05 21:25] LABS: AGAP 11; ALBUMIN 3.6 g/dL (3.5-5.0); ALKALINE PHOSPHATASE 61 U/L (32-104); BUN 8 mg/dL (8-22); CHLORIDE 106 mmol/L (98-107); COSMO 277; CREATININE 0.6 mg/dL (0.5-0.9); ESTIMATED GFR > 60; GLUCOSE 85 mg/dL (70-104); GOT 17 U/L (10-30); GPT 25 U/L (10-36); POTASSIUM 3.7 mmol/L (3.5-5.1); SODIUM 140 mmol/L (136-145); TCO2 23 mmol/L (25-35); TOTAL PROTEIN 6.2 g/dL (6.3-8.3)
[2018-04-06] MEDS: KEPPRA PO SCH ×2 (02:03→08:46)
[2018-04-06] MEDS: NORCO-10 PO PRN ×3 (05:51→21:39)
--- NOTE | 2018-04-06 07:03 | EKG Report ---
Test Performed on : 04/05/2018 7:41:00 PM Test Reason : cva Blood Pressure : / mmHG Vent. Rate : 100 BPM Atrial Rate : 100 BPM P-R Int : 136 ms QRS Dur : 082 ms QT Int : 378 ms P-R-T Axes : 058 -49 047 degrees QTc Int : 487 ms Normal sinus rhythm. Left anterior fascicular block Prolonged QT Abnormal ECG When compared with ECG of 26-FEB-2018 22:03, (Unconfirmed) No significant change was found Unconfirmed Result
[2018-04-06] MEDS: NORVASC PO SCH (08:45)
[2018-04-06] MEDS: COZAAR PO SCH (08:45)
[2018-04-06] MEDS: HYDROCHLOROTHIAZIDE PO SCH (08:46)
[2018-04-06] MEDS: CATAPRES PO SCH ×3 (08:48→21:39)
--- NOTE | 2018-04-06 10:59 | Diag Imaging Result Doc PS360 ---
EXAM: MRI BRAIN W/O CONTRAST HISTORY: TIA vs migraine vs cva TECHNIQUE: MRI brain without contrast COMPARISON: 07/16/2016 FINDINGS: Axial, sagittal, and coronal images obtained in multiple. No recent infarct on the current exam. Old left lacunar infarct near the posterior horn of the internal capsule. No microvascular ischemic changes. No mass or midline shift. No hydrocephalus. Normal orbits. No epidural or subdural fluid collection. No sinus opacification. The cerebellum is at the foramen magnum, but does not appear to extend beneath it. IMPRESSION: Old left lacunar infarct, but no acute abnormality. Electronically signed by Jj Vargas 04/06/2018 10:56 AM
--- NOTE | 2018-04-06 14:59 | HISTORY AND PHYSICAL ---
CHIEF COMPLAINT: Is right-sided weakness. HPI: This is a 47-year-old female who presented to [facility] complaining of right-sided weakness and elevated blood pressure. She states that this started out as a headache then she became tense down her right side. She had tingling in the tips of her fingers and she developed neck and back pain. She does report being under great stress having recently earlier in the day she lost custody of her grandson. Symptoms started shortly after this decision. She does have a history of 2 prior strokes and a PFO repair. On arrival to the emergency room she was noted to have a right pronator drift with weakness to right upper and lower extremities. The patient did state that this was normal since her previous stroke. Blood pressure on arrival to the emergency room was 176/101. She was given labetalol 20 mg IV and blood pressures did decrease to the 130s to 40s over 90s. PAST MEDICAL HISTORY: Hypertension, coronary artery disease, hyperlipidemia, obstructive sleep apnea, chronic pain due to disk disease in her neck and back, history of CVA with frequent TIAs, anxiety and situational depression, hypothyroid, diabetes mellitus, PFO status post repair looks like 2014. PAST SURGICAL HISTORY: PFO repair, cholecystectomy, , hysterectomy, knee arthroscopy, shoulder surgery, breast reduction, tonsillectomy, removal of a tube secondary to ectopic . SOCIAL HISTORY: She lives alone. She smokes about a half pack of cigarettes a day. She denies alcohol or illicit drug use. ALLERGIES: Adhesive tape and aspirin. HOME MEDICATIONS: A list will be obtained by the nursing staff and once verified will review and restart as appropriate. REVIEW OF SYSTEMS: Discussed with the patient with pertinent positives stated in the HPI. She denied any syncope or dizziness, any chest pain, palpitations, any shortness of breath, cough, fever, chills, any nausea, vomiting, diarrhea, constipation, any black or bloody vomitus or stools, any hematuria, dysuria, frequency, urgency. PHYSICAL EXAMINATION: GENERAL: This is a 47-year-old female who is sitting up in the bed in no distress. VITAL SIGNS: Blood pressure is 144/80 with a heart rate of 81, respirations 18, temperature 97.4 degrees with room air saturation 100%. HEENT: Pupils are equal, round, react to light. EOMs are intact. Sclerae are anicteric. Head is normocephalic, atraumatic. Mucous membranes are moist. NECK: Supple with trachea midline. CARDIOVASCULAR: Regular rate and rhythm. S1 and S2 are appreciated. PULMONARY: Breath sounds are clear with no increased work of breathing noted. Chest rises and falls symmetrically with respiration. GASTROINTESTINAL: Abdomen is soft, nontender, nondistended with bowel sounds in all 4 quadrants. GENITOURINARY: She has no CVAT or suprapubic tenderness. SKIN: Warm and dry. NEUROLOGIC: She is alert and oriented. Speech is clear. Forehead is spared. She has no tongue or uvula deviation. She does have a right pronator drift. Muscle strength to left arm and leg are 5/5, right are about 3/5, fire protection fabricator left stronger than right. Of note, the patient does state that she is back to her normal. LABS: WBC is 6.1 with hemoglobin 11.1, hematocrit 33.2 and platelets 263,000. Sodium 140, potassium 3.7, BUN 8, creatinine 0.6, glucose of 85. CT of the head revealed a negative exam. No intracranial mass or hemorrhage. Skull is intact. Sinuses, mastoids and middle ears are clear. Chest x-ray revealed a negative exam. Lungs are clear. Heart size is normal. No pneumothorax or pleural effusion. Urine culture is pending. ASSESSMENT AND PLAN: 1. Cerebrovascular accident. 2. Hypertensive urgency. 3. Uncontrolled hypertension. 4. Hypothyroid. 5. Diabetes mellitus. 6. History of cerebrovascular accident with right-sided weakness. 7. History of obstructive sleep apnea. PLAN: The patient has been admitted to the medical-surgical floor. Will continue with telemetry, neuro checks for 24 hours. We will consult Physical therapy and Occupational therapy. Will also consult [facility] to evaluate for rehab. We will identify her home medications and continue these as appropriate. She will be placed on pattern blood glucose with sliding scale insulin. PFO status post repair. In review of the echocardiogram done in August 2017 she had an estimated ejection fraction of 65% with Doppler studies suggestive of a patent foramen ovale, however saline contrast bubble study was negative for patent foramen ovale. She is followed by Dr. Ortiz on an outpatient basis. Further treatments pending hospital course. Dictated by CARINA Harden for Preet Locke MD This chart was documented by, CARINA Harden and accurately reflects the services performed, treatment plan and medical decisions as attested by the providers signature Preet Locke MD. cc: CARINA Harden MD
[2018-04-06] MEDS: HUMALOG (PARKWAY) SUBQ SCH ×2 (16:48→21:33)
--- NOTE | 2018-04-07 01:18 | HISTORY AND PHYSICAL ---
ADDENDUM: The patient seen and examined by myself. Full note dictated and discussed with nurse practitioner. The patient has been under significant stress recently. She is noted to have right upper and lower extremity weakness. Last night, upon presentation to the ER, she could not raise her right arm at all. Currently, she has decent movement of her right hand, has 4/5 strength. Still has 3/5 strength in her right lower extremity. We will continue to follow, admit, rule out other causes of her CVA, consult Physical Therapy. Further orders as needed. cc: Preet Locke MD
[2018-04-07] MEDS: HUMALOG (PARKWAY) SUBQ SCH ×4 (07:39→21:02)
[2018-04-07] MEDS: KEPPRA PO SCH (09:16)
[2018-04-07] MEDS: HYDROCHLOROTHIAZIDE PO SCH (09:16)
[2018-04-07] MEDS: CATAPRES PO SCH ×3 (09:16→21:01)
[2018-04-07] MEDS: COZAAR PO SCH (09:16)
[2018-04-07] MEDS: NORVASC PO SCH (09:16)
[2018-04-07] MEDS: NORCO-10 PO PRN ×3 (09:19→21:01)
--- NOTE | 2018-04-07 11:33 | Diag Imaging Result Doc PS360 ---
EXAM: HIP W/PELVIS BILAT 2 VIEWS HISTORY: pain, difficult weight bearing TECHNIQUE: Five views COMPARISON: 02/03/2018, 11/12/2015 FINDINGS: There is marked lumbar spondylosis and osteitis pubis. There is bilateral osteoarthritis about the hips right greater than left with near complete joint space narrowing on the right. There is osteophyte formation about the greater trochanters, femoral heads, and there is femoral neck buttressing bilaterally. No destructive lesions are identified. No destructive lesions are appreciated. There is moderate sclerosis about the superior right femoral head which may indicate avascular necrosis. MRI could be considered. IMPRESSION: 1.Progressive bilateral hip osteoarthritis most marked about the right hip. 2.Progressive sclerosis right femoral head somewhat suspicious for avascular necrosis. MRI could be considered. 3.Osteitis pubis and lumbar spondylosis. Electronically signed by Elisabeth Pat 04/07/2018 11:31 AM
--- NOTE | 2018-04-08 00:58 | PROGRESS NOTE ---
DATE: 04/07/2018 SUBJECTIVE: Patient notes she is having pain in her right hip and right knee. She is having difficulty ambulating. She is still fairly weak. Denies any fevers or chills. PHYSICAL EXAMINATION: Vital Signs: Temperature 98 degrees, pulse 69, respiratory 20, BP 109/62. General: Patient is pleasant to talk with. HEENT: Normocephalic. Neck: Supple. CARDIOVASCULAR: Regular rate. Chest: Clear. Abdomen: Soft. Extremities: Moves all extremities. She has 4/5 strength on her left upper and lower, 3/5 on her right upper and lower extremities. ASSESSMENT: 1. Acute cerebrovascular accident. 2. Hypertensive urgency, resolved. 3. Hypothyroidism. 4. Chronic diabetes. 5. History of sleep apnea. PLAN: Continue patient in the hospital. Continue physical therapy. Hip x-ray shows that she may have avascular necrosis, but no acute fracture. We will continue physical therapy and follow. cc: Preet Locke MD
[2018-04-08] MEDS: HUMALOG (PARKWAY) SUBQ SCH ×2 (06:33→13:44)
[2018-04-08] MEDS: NORCO-10 PO PRN ×2 (07:50→15:05)
[2018-04-08] MEDS: HYDROCHLOROTHIAZIDE PO SCH ×2 (07:50→13:54)
[2018-04-08] MEDS: NORVASC PO SCH ×2 (07:50→13:44)
[2018-04-08] MEDS: COZAAR PO SCH ×2 (07:50→13:53)
[2018-04-08] MEDS: CATAPRES PO SCH ×3 (07:51→14:17)
[2018-04-08] MEDS: KEPPRA PO SCH ×2 (07:51→13:54)
[2018-04-08 12:36] VITALS: BP 129/82
--- NOTE | 2018-04-08 15:17 | DISCHARGE SUMMARY ---
ADMISSION DATE: 04/06/2018 DISCHARGE DATE: 04/08/2018 DIAGNOSES: 1. Acute cerebral vascular accident. 2. Hypertensive urgency in a hypertensive patient, resolved. 3. Hypothyroid. 4. Chronic diabetes mellitus. 5. History of sleep apnea. DIAGNOSTICS: 1. CT of the head revealed a negative exam. Ventricles and sulci are normal in size and contour. No intracranial mass or hemorrhage. The skull is intact. The sinuses, mastoids, and middle ears are clear. 2. MRI of the brain revealed an old left lacunar infarct, but no acute abnormality. 3. Hip and pelvis x-ray revealed progressive bilateral hip osteoarthritis, most marked about the right hip, progressive sclerosis of the right femur head, somewhat suspicious for avascular necrosis. MRI could be considered. MICROBIOLOGY: Urine culture revealed normal boyd. HOSPITAL COURSE: Ms. Reyes presented to the emergency room complaining of right-sided weakness. She was found to have suffered a CVA. On presentation she could not raise her right arm at all. She now has some movement of her arm with 4/5 strength to her right hand and 5/5 to her left hand. She complained of hip pain. A pelvis x-ray was performed and revealed progressive bilateral hip osteoarthritis, most marked about the right hip, with progressive sclerosis of the right femoral head, somewhat suspicious for avascular necrosis. MRI could be considered per Radiology read. She was evaluated by [facility] and thankfully, she is ready for rehab. DISCHARGE PHYSICAL EXAMINATION: Cardiovascular: Regular rate and rhythm. S1 and S2 appreciated. Pulmonary: Breath sounds are clear. No increased work of breathing noted. Gastrointestinal: Abdomen is soft, nontender, nondistended with bowel sounds in all 4 quadrants. Neurologic: She is alert and oriented x3. She continues with 3/5 strength to the right upper and lower extremities and 4 to 5/5 of her left upper and lower. DISCHARGE VITAL SIGNS: Blood pressure is 129/82, with a heart rate of 75, respirations are 18, temperature is 98.5 degrees oral, with room air saturation 100%. DISCHARGE MEDICATIONS: 1. Xanax 1 mg p.o. at bedtime. 2. Clonidine 0.1 mg p.o. b.i.d. 3. Plavix 75 mg p.o. daily. 4. Keppra 500 mg p.o. daily. 5. Reglan 5 mg p.o. daily. 6. Omeprazole 40 mg p.o. daily. 7. K-Tab 10 mEq daily. 8. Norvasc 10 mg p.o. daily. 9. Losartan hydrochlorothiazide 100/12.5 daily. 10. Phenergan 25 mg p.o. q.6 hours p.r.n. 11. [place] 10 one p.o. t.i.d. p.r.n. pain. FOLLOW UP: Follow up will be arranged on her discharge from [facility]. DISPOSITION: She is being discharged in stable condition for transfer to [facility]. TIME SPENT: This is a greater than 30 minute discharge. Dictated by CARINA Harden for Preet Locke MD This chart was documented by, CARINA Harden and accurately reflects the services performed, treatment plan and medical decisions as attested by the providers signature Preet Locke MD. cc: CARINA Harden MD
--- NOTE | 2018-04-09 23:52 | DISCHARGE SUMMARY ---
ADMISSION DATE: 04/06/2018 DISCHARGE DATE: 04/08/2018 ADDENDUM: Patient seen and examined by myself, full note dictated and discussed with nurse practitioner. Patient was admitted with a acute CVA. Her symptoms have improved but have not completely resolved, hypertension urgency has resolved. She will be discharged to [facility]. Please see full note. cc: Preet Locke MD
== END 2018-04-08 15:08 ==
LOC: P.ED 18:37 → P.MEDSURG 04-06 00:38 → INTOOBSV 04-06 00:38
PROVIDERS: ATTEND Family Medicine
CPT/HCPCS: 70450; 70551; 71010; 71045; 73521; 80053; 81001; 81025; 82948; 84484; 85025; 85610; 85730; 87088; 93005; 96374; 97163; 97166; 97530; 97535; 99285; 99291; A9270; J7030; XXXXX

== ENCOUNTER 2018-08-19 13:55 | Inpatient (IN) ==
[2018-08-19] MEDS ORDERED: LABETALOL ONE ×2 (14:16→15:22)
[2018-08-19] MEDS ORDERED: LABETALOL IV ONE ×2 (14:17→15:24)
[2018-08-19] MEDS ORDERED: ZOFRAN IV ONE (14:17)
--- NOTE | 2018-08-19 14:27 | PROVIDER DOCUMENTATION ---
This chart was entered by Jazmin Aggarwal Scribe, acting as scribe for Trena Horn CRNP. HPI-Abdominal Pain/GI Problem - General Chief Complaint: B/P Problems Stated Complaint: BP PROBLEMS Time Seen by Provider: 08/19/18 14:15 Source: patient Allergies/Adverse Reactions: Patient Allergies Allergy/AdvReac Type Severity Reaction Status Date / Time adhesive tape Allergy ITCHING Verified 04/05/18 18:50 aspirin AdvReac Unknown Unknown Verified 04/05/18 18:50 Home Medications: Home Medication List Medication Instructions Recorded Confirmed Last Taken Type Clopidogrel Bisulfate [Plavix] 75 mg PO DAILY 08/13/15 04/06/18 02/16/18 History Alprazolam [Xanax] 1 mg PO QHS 03/14/16 04/06/18 02/15/18 History Amlodipine [Norvasc] 10 mg PO DAILY tablet 07/22/16 04/06/18 02/16/18 Rx Clonidine [Catapres] 0.1 mg PO BID 09/16/17 04/06/18 02/16/18 History Metoclopramide HCl [Reglan] 5 mg PO DAILY PRN 09/16/17 04/06/18 02/11/18 History Potassium Chloride [K-Tab ER] 10 meq PO DAILY 09/16/17 04/06/18 02/16/18 History Promethazine [Phenergan] 25 mg PO Q6H PRN PRN #5 tablet 09/18/17 04/06/18 02/11/18 Rx Hydrocodone/Acetaminophen [[place] 1 tab PO TID PRN 01/01/18 04/06/18 02/15/18 History 10-325 Tablet] Levetiracetam [Keppra] 500 mg PO DAILY 02/16/18 04/06/18 02/15/18 History Omeprazole 40 mg PO DAILY 02/16/18 04/06/18 02/16/18 History Losartan/Hydrochlorothiazide 1 ea PO DAILY #30 tab 02/17/18 04/06/18 Unknown Rx [Losartan-Hctz 100-25 mg Tab] Fluconazole [Diflucan] 150 mg PO DAILY #3 tab 05/15/18 Unknown Rx Metronidazole [Flagyl] 500 mg PO DIRECTED #4 tab 05/15/18 Unknown Rx - History of Present Illness-ABD Nature of Presenting Problems: 48 yobf presents to the ed with c/o elevated BP and n/v. pt sts woke up fine this am and then about 2 hrs ago she had acute onset of n/v diaphoresis and BP was elevated. pt went to see her pcp dr tucker and was sent to ed. pt on exam has BP 225/135 and has had multiple cva's in past Abdominal Pain Onset Location: reports: generalized abdomen Pain Radiation: reports: no radiation Quality of Pain: reports: cramping Severity in ED: reports: moderate Onset/Duration: reports: 1-3 hours ago Timing: reports: still present, getting worse Activities at Onset: reports: light activity Exposure to sick contacts?: No Modifying Factors: improves with: nothing Associated Symptoms: reports: anxiety, fatigue, fever/chills, malaise, nausea, vomiting. denies: back/neck pain, chest pain, diarrhea, dizziness, shortness of breath, syncope Last BM: last night Dark Stools Present?: reports: none noticed Rectal Bleeding: reports: none # of Diarrhea Episodes: 0 Rectal Pain: reports: none # of Vomiting Episodes: 15 Emesis Description: reports: other (green/yellow) Bruising or Bleeding Gums?: No Similar Symptoms Previously?: No Recently seen or treated by another doctor?: Yes (dr tucker this morning) Review of Systems - Adult - REVIEW OF SYSTEMS - ADULT Constitutional: reports: see HPI, chills, fatique. denies: fever Eyes: denies: blurred vision, double vision Ears, Nose, Mouth & Throat: reports: no symptoms reported Cardiovascular: denies: chest pain, orthopnea, palpitations Respiratory: denies: shortness of breath, wheezing Gastrointestinal: reports: see HPI, abdominal pain, nausea, poor appetite, vomiting Genitourinary: reports: no symptoms reported Musculoskeletal: denies: back pain, neck pain Integumentary: reports: no symptoms reported Neurological: reports: tremors. denies: dizziness/vertigo, headache/migraines, syncope Psychiatric: reports: no symptoms reported Endocrine: reports: no symptoms reported Hematologic/Lymphatic: reports: no symptoms reported Allergic/Immunologic: reports: no symptoms reported All Other Systems: Reviewed and Negative Past History - Adult - PAST MEDICAL HISTORY-ADULT Review of Records: reports: Old Records Reviewed, Nursing Assessment Review, Me dications Reviewed, Social history reviewed & non-contributory. Major Childhood Illnesses: reports: denies history Cardiovascular: reports: cardiac disease, HTN (for years and has never been controlled despite various multiple medication combinations.), hyperlipidemia, ND Respiratory: reports: sleep apnea Gastrointestinal: reports: denies history Obstetrical/Gynecological: reports: ectopic Genitourinary: reports: denies history Musculoskeletal: reports: chronic pain, fibromyalgia, intervertebral disc disease, neck/back injury, other (degenerative joint disease) Neurological: reports: CVA, Seizures/Epilepsy, TIA Psychiatric: reports: anxiety, depression Endocrine/Immune: reports: thyroid disorder, Diabetes Diabetes Type: Type 2 Other Conditions: reports: eye problems/injury - PRIOR SURGERIES/PROCEDURES Surgical/Procedure History: reports: cholecystectomy, hysterectomy, , indwelling device (titanium plate in heart), tonsillectomy, hernia repair, orthopedic (extremity) (knee arthroscopy x5, shoulder x2), joint replacement (knee), breast (reduction), other (cardiac implant; ectopic ) - IMMUNIZATION STATUS Childhood Immunizations: See Nurse Assessment Flu Vaccine: See Nurse Assessment - FAMILY HISTORY Family History: reviewed, not pertinent, seizures - SOCIAL HISTORY Smoking: cigarettes, less than 1 pack/day Provider spent 3-5 mins advising pt. on dangers of tobacco.: Discussed manners to quit use, and f/u contacts for add'l counseling. Substance Use: denies Alcohol Use Frequency: never Living Situation: family Physical Exam-General - PHYSICAL EXAM-ADULT Initial Vital Signs Reviewed: Yes (225/135) - CONSTITUTIONAL General Appearance: alert, moderate distress. negative: appears well - EYES Eyes: PERRL/EOMI - HEAD, EARS, NOSE, MOUTH & THROAT HENMT: moist mucous membranes, normal ENT inspection - NECK Neck: full range of motion, normal inspection - RESPIRATORY Respiratory: chest non-tender, lungs clear, normal breath sounds - CARDIOVASCULAR Cardiovascular: normal peripheral pulses, regular rate, rhythm - GASTROINTESTINAL (ABDOMEN) Abdominal Exam: soft, abnormal bowel sounds, guarding, tenderness (generalized from vomiting). negative: distended - LYMPHATIC Lymphatic: no adenopathy - MUSCULOSKELETAL Back Exam: normal inspection, no CVA tenderness, no vertebral tenderness Extremity: normal range of motion, non-tender, normal gait, no calf tenderness - SKIN Integumentary: diaphoresis - NEUROLOGIC Neurologic: no motor/sensory deficits - PSYCHIATRIC Psych/Mental Status: normal mood/affect, normal thought content, normal thought process, oriented x 3 Progress - PLAN OF CARE/RESULTS Progress/Plan/Lab Results: Vital Signs - 8 hr 08/19/18 14:00 Pulse Rate 98 H Respiratory Rate 20 Blood Pressure 230/028 O2 Sat by Pulse Oximetry 100 Result Diagrams: 08/19/18 14:20 08/19/18 14:20 - REASSESSMENT Reassessment #1 Time Reassessed: 14:26 Status: unchanged - EKG 1 Time of EKG reading by physician:: 14:26 EKG Read and Signed by:: Norma Vargas EKG Interpretation (*Must complete 3 of following elements*): Abnormal Rate: 79 Rhythm: nsr Center Point: normal QRS: LVH, other (LAFB) AL Interval: normal ST Wave: normal Comments: cannot rule out anterior infarct, age undetermined - XRAY 1 XRAY: Bilateral XRAY Study: Chest Impression: See EMR Report (EXAM: CHEST-1 VIEW - 08/19/2018 HISTORY: SOB TECHNIQUE: One view chest COMPARISON: 04/05/2018 FINDINGS: Heart size walt ears within normal limits and stable. The lungs appear clear. There is no pleural effusion or pneumothorax identified. There are degenerative changes noted at the bilateral shoulders. IMPRESSION: No evidence of acute disease. Electronically signed by Vargas Cruz 08/19/2018 3:17 PM 08/19/18 1517 Interpreting Physician: Vargas Cruz MD Dictated Date/Time: 08/19/18 151 cc: Trena Horn; Brayden Tucker MD) - CT/MRI 1 CT Study: Head ([facility] [address] , [address], [place] [address] Department of Imaging Patient: JACOB HADLEY Date: 08/19/18MR#: [id number] : 1970ADM Status: PRE ERAcct#: [id number] Age/Sex: 48/FRoom/Bed: Loc: P.ED Ordering Physician: Trena Horn Family Physician: Brayden Tucker MD Reason for Procedure: HTN Signed EXAM: CT HEAD W/O CONTRAST - 08/19/2018 HISTORY: HTN TECHNIQUE: CT head without contrast COMPARISON: 04/05/2018 FINDINGS: There is no evidence of intracranial hemorrhage, mass effect, midline shift, or hydrocephalus. 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 There is an old lacunar infarct at the left internal capsule/thalamus region similar to prior. There is no indication of recent infarct, although acute infarcts may not be immediately visible. There is no evidence of skull fracture. Visualized portions of paranasal sinuses and mastoid air cells appear clear. IMPRESSION: No visible acute intracranial abnormality. No hemorrhage or mass effect. This exam was performed using automated exposure control, adjustment of mA or kV according to patient size, and/or use of iterative reconstruction technique. Electronically signed by Vargas Cruz 08/19/2018 2:55 PM 08/19/18 1455 Interpreting Physician: Vargas Cruz MD Dictated Date/Time: 08/19/18 1452 cc: Trena Horn; Brayden Tucker MD) CT Results: See note - CONSULTS/PCP/HOSPITALIST Notification #1 *Consult/PCP/Hospitalist*: Dr. Plunkett Time Discussed: 15:48 Reason/Comments: Admission Consult Disposition: Will see in ED, Admit Departure - Departure Date of Disposition Decision: 08/19/18 Time of Disposition Decision: 15:42 DIAGNOSIS: Hypertensive urgency, Hypokalemia Disposition: ADMITTED INPATIENT 09 Certified Medical Emergency: Emergent Condition: Stable Referrals and Follow-Ups: Brayden Tucker MD [Primary Care Provider] - Discharge Education: Steps to Quit Smoking, [id number] - Critical Care Note This patient required my direct & personal management of CC.: No Attestation - Physician/ WALT Attestation Patient care was provided by Advanced Practice Provider:: Yes Advanced Practice Provider:: Trena Horn Advanced Practice Provider documentation review:: The Mid-level provider documentation, treatment plan and medical decision making was reviewed by the physician who agrees with all treatment and medical decision making by the MLP. The physician spent face to face time with patient:: No Advanced Practice Provider documentation review:: Supervising physician onsite and consulted in the evaluation and care of this patient. The physician did not have a face to face encounter with the patient. This chart was documented by the indicated scribe, (Jazmin Aggarwal Scribe) and accurately reflects the services I performed and decisions made by , Trena Horn CRNP, as attested by the provider's signature.
[2018-08-19 14:38] LABS: BASO# 0.02 X1000 (0.0-0.2); BASO% 0.3 % (0.0-0.8); EOS# 0.14 X1000 (0.0-0.7); EOS% 2.4 % (0.0-10.0); HEMATOCRIT 43.4 % (37.0-47.0); HEMOGLOBIN 14.6 g/dL (12.0-16.0); IMM GRAN# 0.02 X1000 (0.0-0.04); IMM GRAN% 0.3 % (0.0-0.5); LYMPH# 2.51 X1000 (1.2-3.4); LYMPH% 42.3 % (20.5-51.1); MCH 27.9 PG (27-31); MCHC 33.6 g/dL (33-37); MCV 82.8 FL (81-99); MONO# 0.49 X1000 (0.11-0.59); MONO% 8.3 % (1.7-9.3); MPV 10.2 FL (7.4-10.4); NEUT# 2.75 X1000 (1.4-6.5); NEUT% 46.4 % (42.2-75.2); PLT 239 X1000 (130-400); RBC 5.24 XMIL (4.2-5.4); RDW 14.5 % (11.5-14.5); WBC 5.93 X1000 (4.8-10.8)
[2018-08-19 14:54] LABS: AGAP 16; ALBUMIN 5.1 g/dL (3.5-5.0); ALKALINE PHOSPHATASE 85 U/L (32-104); BUN 5 mg/dL (8-22); CALCIUM 9.6 mg/dL (8.8-10.2); CHLORIDE 104 mmol/L (98-107); CK PROFILE 163 U/L (24-173); COSMO 283; CREATININE 0.6 mg/dL (0.5-0.9); ESTIMATED GFR > 60; GLUCOSE 110 mg/dL (70-104); GOT 15 U/L (10-30); GPT 14 U/L (10-36); MAGNESIUM 1.7 mg/dL (1.5-2.7); POTASSIUM 2.9 mmol/L (3.5-5.1); SODIUM 143 mmol/L (136-145); TCO2 22 mmol/L (25-35); TOTAL PROTEIN 8.2 g/dL (6.3-8.3)
--- NOTE | 2018-08-19 14:57 | Diag Imaging Result Doc PS360 ---
EXAM: CT HEAD W/O CONTRAST - 08/19/2018 HISTORY: HTN TECHNIQUE: CT head without contrast COMPARISON: 04/05/2018 FINDINGS: There is no evidence of intracranial hemorrhage, mass effect, midline shift, or hydrocephalus. 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 There is an old lacunar infarct at the left internal capsule/thalamus region similar to prior. There is no indication of recent infarct, although acute infarcts may not be immediately visible. There is no evidence of skull fracture. Visualized portions of paranasal sinuses and mastoid air cells appear clear. IMPRESSION: No visible acute intracranial abnormality. No hemorrhage or mass effect. This exam was performed using automated exposure control, adjustment of mA or kV according to patient size, and/or use of iterative reconstruction technique. Electronically signed by Vargas Cruz 08/19/2018 2:55 PM
[2018-08-19] MEDS ORDERED: KLOR-CON PO ONE (15:05)
--- NOTE | 2018-08-19 15:19 | Diag Imaging Result Doc PS360 ---
EXAM: CHEST-1 VIEW - 08/19/2018 HISTORY: SOB TECHNIQUE: One view chest COMPARISON: 04/05/2018 FINDINGS: Heart size appears within normal limits and stable. The lungs appear clear. There is no pleural effusion or pneumothorax identified. There are degenerative changes noted at the bilateral shoulders. IMPRESSION: No evidence of acute disease. Electronically signed by Vargas Cruz 08/19/2018 3:17 PM
--- NOTE | 2018-08-19 15:32 | EKG Report ---
Test Performed on : 08/19/2018 2:26:11 PM Test Reason : SOB Blood Pressure : / mmHG Vent. Rate : 079 BPM Atrial Rate : 079 BPM P-R Int : 140 ms QRS Dur : 090 ms QT Int : 412 ms P-R-T Axes : 039 -47 009 degrees QTc Int : 472 ms Normal sinus rhythm. Left anterior fascicular block Minimal voltage criteria for LVH, may be normal variant Cannot rule out Anterior infarct , age undetermined Abnormal ECG When compared with ECG of 05-APR-2018 19:41, Minimal criteria for Anterior infarct are now present T wave inversion now evident in Inferior leads Unconfirmed Result
[2018-08-19 15:37] LABS: BILIRUBIN URINE NEGATIVE (NEGATIVE); BLOOD URINE NEGATIVE (NEGATIVE); CLARITY CLEAR (CLEAR); COLOR YELLOW; GLUCOSE URINE NEGATIVE (NEGATIVE); KETONE URINE NEGATIVE (NEGATIVE); LEUKOCYTES URINE NEGATIVE (NEGATIVE); NITRITE URINE NEGATIVE (NEGATIVE); PROTEIN URINE 1+(30 mg/dL) mg/dL (NEGATIVE); UROBILINOGEN URINE NORMAL
[2018-08-19 15:47] LABS: URINE BACTERIA 3+ /HFP; URINE CAST NONE SEEN /LPF; URINE CRYSTAL NONE SEEN /HPF; URINE EPITHELIAL CELLS >10 /HPF (<10); URINE YEAST NONE SEEN /HPF
[2018-08-19 15:48] LABS: URINE SOURCE CLEAN CATCH
[2018-08-19] MEDS: CARDENE 20 MG/NS 20 MG/200 ML PIGGYBACK IV SCH ×2 (16:06→20:28)
[2018-08-19] MEDS ORDERED: ZOFRAN IV PRN (16:47)
[2018-08-19] MEDS ORDERED: TYLENOL PO PRN (16:47)
[2018-08-19] MEDS ORDERED: PHENERGAN PO PRN (16:49)
[2018-08-19] MEDS ORDERED: NS 1,000 ML IV ONE (16:49)
--- NOTE | 2018-08-19 20:58 | HISTORY AND PHYSICAL ---
HISTORY OF PRESENT ILLNESS: The patient has no major complaints, except for some dysuria. Her blood pressure was very elevated when she came in. She came in from Dr. Tucker's office. Her blood pressure currently 230 over I believe 128. She received several doses of medications, including labetalol 20 mg total, and now she is on a nicardipine drip. She is not particularly symptomatic. No chest pain. No shortness of breath. No headache. No dizziness. She is complaining of polyuria. Potassium is a bit elevated at 2.9, but her creatinine is fine. Her glucose is fine. Her urine is really unremarkable, not particularly concentrated, so I am not quite sure there, but in any case,the patient was admitted for hypertensive emergency. Unclear what issue. We will initiate IV nicardipine and follow her. Physical exam is unremarkable. Regular rate and rhythm. Clear to auscultation bilaterally. This is a [id number] encounter note with Palmira Barrios. A 32 minute critical care note for hypertensive urgency requiring IV nicardipine. We will continue to follow. cc: Ronnell Plunkett MD
[2018-08-19] MEDS ORDERED: SEROQUEL PO SCH (21:00)
[2018-08-20] MEDS: CARDENE 20 MG/NS 20 MG/200 ML PIGGYBACK IV SCH ×3 (00:56→10:09)
[2018-08-20 03:15] LABS: HEMATOCRIT 38.6 % (37.0-47.0); HEMOGLOBIN 13.2 g/dL (12.0-16.0); LYMPH% 28.2 % (20.5-51.1); MCH 28.3 PG (27-31); MCHC 34.2 g/dL (33-37); MCV 82.8 FL (81-99); MONO% 7.5 % (1.7-9.3); MPV 9.2 FL (7.4-10.4); PLT 241 X1000 (130-400); RBC 4.66 XMIL (4.2-5.4); RDW 14.2 % (11.5-14.5); WBC 6.95 X1000 (4.8-10.8)
[2018-08-20 03:16] LABS: BASO# 0.01 X1000 (0.0-0.2); BASO% 0.1 % (0.0-0.8); EOS# 0.01 X1000 (0.0-0.7); EOS% 0.1 % (0.0-10.0); IMM GRAN# 0.01 X1000 (0.0-0.04); IMM GRAN% 0.1 % (0.0-0.5); LYMPH# 1.96 X1000 (1.2-3.4); MONO# 0.52 X1000 (0.11-0.59); NEUT# 4.44 X1000 (1.4-6.5)
[2018-08-20 03:41] LABS: AGAP 12; ALBUMIN 4.1 g/dL (3.5-5.0); ALKALINE PHOSPHATASE 69 U/L (32-104); BUN 4 mg/dL (8-22); CALCIUM 8.7 mg/dL (8.8-10.2); CHLORIDE 105 mmol/L (98-107); COSMO 273; CREATININE 0.5 mg/dL (0.5-0.9); ESTIMATED GFR > 60; GLUCOSE 104 mg/dL (70-104); GOT 12 U/L (10-30); GPT 10 U/L (10-36); MAGNESIUM 1.5 mg/dL (1.5-2.7); POTASSIUM 3.2 mmol/L (3.5-5.1); SODIUM 138 mmol/L (136-145); TCO2 22 mmol/L (25-35); TOTAL PROTEIN 6.7 g/dL (6.3-8.3)
[2018-08-20 03:53] LABS: PROTIME 13.1 Seconds (11.0-16.0)
[2018-08-20 03:54] LABS: INR 0.94
[2018-08-20 03:55] LABS: PTT 44.5 Seconds (22.3-41.8)
--- NOTE | 2018-08-20 06:08 | HISTORY AND PHYSICAL ---
PRIMARY CARE PROVIDER: Dr. Brayden Tucker. CHIEF COMPLAINT: High blood pressure HISTORY OF PRESENT ILLNESS: Ms. Ashley Reyes is a 48-year-old -[place] female with a medical history of hypertension that is frequently uncontrolled, history of stroke, hyperlipidemia, CAD, anxiety, depression, diabetes, who presents from her primary care provider's office today. Apparently she went to see Dr. Tucker for a routine checkup and was found to have a blood pressure of 197/130. They gave her a clonidine, had her lay down, but still continued to have blood pressure climbing up to the 200s. He then sent her to the emergency department where she was initiated on labetalol and nicardipine drip. She also received potassium for supplementation for her low potassium level. She states last week or the week before she had gastroenteritis and could not keep anything down. It was vomiting and diarrhea, and was unable to take her medications during that time. She has only been able to eat regular food for about two days. She stopped vomiting last Thursday but today with the blood pressure rising she has become very nauseous and vomiting at times. She will be followed in the ICU while she is on her drip. PAST MEDICAL HISTORY: 1. Hypertension, frequently uncontrolled. 2. Coronary artery disease. 3. Hyperlipidemia. 4. Obstructive sleep apnea. 5. Chronic pain syndrome due to degenerative disc disease in the neck and back. 6. CVA and TIAs. 7. Anxiety. 8. Depression. 9. Hypothyroidism. 10.Diabetes mellitus, type 2. 11.PFO in the past where she has had it patched or repaired in 2015. 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 13.Medical noncompliance. SURGICAL HISTORY: 1. PFO repair. 2. Cholecystectomy. 3. section. 4. Hysterectomy. 5. Knee arthroscopy. 6. Shoulder surgery. 7. Breast reduction. 8. Tonsillectomy. 9. Removal of a tube secondary to ectopic , tubal ligation. SOCIAL HISTORY: Lives at home alone. She is a qofn-uqrw-fwv-day smoker. Denies alcohol or illicit drug use. FAMILY HISTORY: Denies. ALLERGIES: Adhesive tape and aspirin. HOME MEDICATIONS: Not verified yet. REVIEW OF SYSTEMS: Fourteen-point review of systems are complete and all were negative except for those mentioned above in HPI. PHYSICAL EXAMINATION: VITAL SIGNS: Temperature not recorded, heart rate 89, respiratory rate 15, blood pressure 189/116, O2 saturation 98% on room air. GENERAL: Ms. Ashley Reyes is a 48-year-old -[place] female. She is in no acute distress. She is able to answer questions appropriately. HEENT: Atraumatic, normocephalic. Pupils equal, round, reactive to light. Extraocular movements intact. Mucous membranes are dry. NECK: Trachea midline. CARDIOVASCULAR: S1, S2. Regular rate and rhythm. No rubs, gallops, murmurs. No lower extremity edema. Negative JVD or carotid bruits. PULMONARY: Clear to auscultate. Bilateral breath sounds. No accessory muscle use or work of breathing noted. GASTROINTESTINAL: Soft, nontender, nondistended, positive bowel sounds times 4. EXTREMITIES: Moves all extremities equally with full range of motion. NEUROLOGIC: A and O times 3. Follows commands. Sensory is intact. SKIN: Warm, dry, intact but pale. LABORATORY DATA: White blood cells 5000. Hemoglobin 14. Hematocrit 43. Platelet count 239. Sodium 143. Potassium 2.9. BUN is 5. Creatinine 0.6. Glucose 110. Calcium 9.6. Magnesium 1.7. Bilirubin 0.40. AST 15. ALT 14. CK 163. Troponin less than 0.01. Albumin 5.1. TSH 3.67. Urine protein 1-plus. Bacteria 3-plus. IMAGING: Head CT negative. Chest x-ray negative. EKG: Normal sinus rhythm. Rate 79. QTc 472. ASSESSMENT AND PLAN: 1. Hypertensive urgency, likely rebound effect secondary to having gastroenteritis and not taking her medications. This has now caused her to have a nauseated with some vomiting again. She is receiving labetalol IV and she will be on a Cardene drip, monitored in the ICU. 2. Recent gastroenteritis. Will do Zofran for nausea. May have to add some Phenergan. The Zofran is not getting her for very long and she is dehydrated with it so we will do a little saline with it, low rate saline. 3. History of cerebrovascular accident and transient ischemic attacks. No obvious signs now and her head CT is negative. 4. Coronary artery disease. Allergy to aspirin. Home medications need to be reconciled, and she denies chest pain. 5. Hyperlipidemia. 6. Obstructive sleep apnea. 7. Anxiety and depression. Once medications are verified, will resume. 8. Hypothyroidism. Continue with Synthroid once it is verified. 9. Diabetes mellitus, type 2. Will do patterned blood glucoses and sliding scale insulin. 10.Deep venous thrombosis prophylaxis. Sequential compression devices. 11.Tobacco abuse cessation discussed. Dictated by CARINA Escobar for Ronnell Plunkett MD cc: CARINA Escobar MD
--- NOTE | 2018-08-20 08:16 | Diag Imaging Result Doc PS360 ---
CHEST-PORTABLE - 08/20/2018 INDICATION: sob COMPARISON: 08/19/2018 FINDINGS: The lungs are normally expanded and clear. Heart size and mediastinal contours are normal. No pneumothorax or pleural effusion. IMPRESSION: Negative exam. Electronically signed by Willian Chapman 08/20/2018 8:14 AM
[2018-08-20] MEDS: PLAVIX PO SCH (09:14)
[2018-08-20] MEDS: KEPPRA PO SCH (09:14)
[2018-08-20] MEDS ORDERED: NORCO-10 PO PRN (09:58)
[2018-08-20] MEDS ORDERED: CATAPRES PO SCH ×2 (10:00→21:00)
[2018-08-20] MEDS: NORVASC PO SCH (10:13)
[2018-08-20] MEDS: COZAAR PO SCH (10:13)
--- NOTE | 2018-08-20 10:15 | EKG Report ---
Test Performed on : 08/20/2018 08:45:28 AM Test Reason : htn Blood Pressure : / mmHG Vent. Rate : 105 BPM Atrial Rate : 105 BPM P-R Int : 122 ms QRS Dur : 084 ms QT Int : 362 ms P-R-T Axes : 057 -70 020 degrees QTc Int : 478 ms Sinus tachycardia. Possible Left atrial enlargement Left anterior fascicular block Possible Anterior infarct (cited on or before 19-AUG-2018) Abnormal ECG When compared with ECG of 19-AUG-2018 14:26, (Unconfirmed) Nonspecific T wave abnormality no longer evident in Anterior leads Confirmed by Ranulfo Vogt MD ([id number]) on 08/26/2018 2:14:21 AM
[2018-08-20] MEDS ORDERED: CATAPRES PO ONE (10:55)
[2018-08-20] MEDS ORDERED: LABETALOL IV PRN (10:58)
[2018-08-20] MEDS: IMDUR PO SCH (11:28)
--- NOTE | 2018-08-20 13:22 | PROGRESS NOTE ---
DATE: 08/20/2018 SUBJECTIVE: The patient feels better. She is complaining of some chest pain which she did not tell me anything about that before, and she says it is constant. In any case, she seems to be doing okay. OBJECTIVE: Cardiovascular: Regular rate and rhythm. Pulmonary: Bilateral breath sounds. Clear to auscultation. GI: Soft, nontender, and nondistended. Bowel sounds are positive. LABORATORY DATA: Her white count is 6, hemoglobin and hematocrit 13 and 38, and platelets 241,000. PTT is 44, potassium is 3.2. Rest of her numbers are okay including a creatinine of 0.5. Her urine was unremarkable. PROBLEM LIST: 1. Malignant hypertension. We are going to try to wean off her Cardene drip. She is concerned about just her constant kind of polyuria, which is unclear what that is from. I am going to go ahead and stop her diuretic, and we will try to substitute it for another blood pressure medication. She is currently on Norvasc at 10 and losartan 100. She was on hydrochlorothiazide. She is on clonidine 0.2 b.i.d., and I think that it. I may add Imdur since she is having chest pain, although at this point it is not clear that this is ischemic in nature. It may just be related to her other issues, but I am going to add some Imdur and see if that helps with her chest pain which may just be related to her malignant hypertension. 2. CVA history. She seems to be stable. Continue aspirin. 3. Hypothyroidism appears to be stable. DISPOSITION: Pending her clinical status. Anticipate discharge tomorrow for the rest of her numbers look good. cc: Ronnell Plunkett MD
--- NOTE | 2018-08-20 17:06 | ECHO REPORT ---
ORDER DATE: 08/19/2018 INDICATION: Shortness breath, hypertension. FINDINGS: 1. The right atrium appears normal in size at 2.8 cm. On color Doppler, there was evidence of a arhht-ts-lhiq shunt across the interatrial septum consistent with a small patent foramen ovale. There was no evidence of shunting via injection of agitated saline contrast. 2. Trace tricuspid regurgitation. RV systolic pressure of 20. 3. Normal RV size and systolic function. 4. Mild pulmonic insufficiency. 5. Normal left atrial size with a dimension of 3.6 and a volume index of 24. 6. No mitral valve prolapse. Mild mitral regurgitation. 7. Normal LV size, end-diastolic dimension of 3.6. Mild to moderate left ventricular hypertrophy with a posterior and interventricular septal wall thickness of 1.4 and 1.45 cm respectively. Normal LV systolic function. Calculated ejection fraction of 67% with normal wall motion. 8. Aortic valve opens well; it is trileaflet. No evidence of stenosis or insufficiency. 9. Aorta appears normal in visualized segments. 10. No pericardial effusion identified. cc: MD Palmira Aparicio CRNP
[2018-08-20] MEDS: CATAPRES PO SCH (20:07)
[2018-08-20] MEDS ORDERED: SEROQUEL PO SCH (21:00)
[2018-08-21 06:24] LABS: BASO# 0.01 X1000 (0.0-0.2); BASO% 0.3 % (0.0-0.8); EOS# 0.01 X1000 (0.0-0.7); EOS% 0.3 % (0.0-10.0); HEMATOCRIT 38.6 % (37.0-47.0); HEMOGLOBIN 12.9 g/dL (12.0-16.0); IMM GRAN# 0.01 X1000 (0.0-0.04); IMM GRAN% 0.3 % (0.0-0.5); LYMPH# 1.91 X1000 (1.2-3.4); LYMPH% 51.5 % (20.5-51.1); MCH 27.9 PG (27-31); MCHC 33.4 g/dL (33-37); MCV 83.5 FL (81-99); MONO# 0.39 X1000 (0.11-0.59); MONO% 10.5 % (1.7-9.3); MPV 9.9 FL (7.4-10.4); NEUT# 1.38 X1000 (1.4-6.5); NEUT% 37.1 % (42.2-75.2); PLT 251 X1000 (130-400); RBC 4.62 XMIL (4.2-5.4); RDW 14.3 % (11.5-14.5); WBC 3.71 X1000 (4.8-10.8)
[2018-08-21 06:50] LABS: AGAP 10; BUN 9 mg/dL (8-22); CALCIUM 8.7 mg/dL (8.8-10.2); CHLORIDE 106 mmol/L (98-107); COSMO 277; CREATININE 0.6 mg/dL (0.5-0.9); ESTIMATED GFR > 60; GLUCOSE 108 mg/dL (70-104); POTASSIUM 3.3 mmol/L (3.5-5.1); SODIUM 139 mmol/L (136-145); TCO2 23 mmol/L (25-35)
[2018-08-21] MEDS ORDERED: PRILOSEC PO SCH (07:00)
[2018-08-21] MEDS: KEPPRA PO SCH (08:55)
[2018-08-21] MEDS: NORVASC PO SCH (08:55)
[2018-08-21] MEDS: IMDUR PO SCH (08:55)
[2018-08-21] MEDS: CATAPRES PO SCH (08:56)
[2018-08-21] MEDS: PLAVIX PO SCH (08:56)
[2018-08-21] MEDS: COZAAR PO SCH (08:57)
[2018-08-21] MEDS ORDERED: CELEXA PO SCH (09:00)
[2018-08-21] MEDS ORDERED: HYDROCHLOROTHIAZIDE PO SCH (09:00)
[2018-08-21 12:06] VITALS: BP 110/71
--- NOTE | 2018-08-22 02:39 | DISCHARGE SUMMARY ---
ADMISSION DATE: 08/19/2018 DISCHARGE DATE: 08/21/2018 SUBJECTIVE: She is doing well the day of discharge, feels fine. No headache. No shortness of breath. No chest pain. OBJECTIVE: Vital signs: Blood pressure 110/71, heart rate 67, respiratory rate 12, temperature 97.6 degrees, blood pressure 143/103 this morning before her medications. Cardiovascular: Regular rate and rhythm. Pulmonary: Bilateral breath sounds. Clear to auscultation. Gastrointestinal: Soft, nontender, nondistended. Bowel sounds are positive. LABS: Unremarkable. Creatinine 0.6. ASSESSMENT AND PLAN: Her blood pressure is stable. I have adjusted things a little bit, really not too much. She was having a lot of polyuria, so we elected to stop her hydrochlorothiazide and put her on some Imdur because she was having some intermittent chest pain. EKG was normal. She had an echo which showed no wall motion abnormality, ejection fraction 67%. Valves looked okay. She does have a small patent foramen ovale and she has small evidence of wlwyo-hd-jiob shunt, but there was no agitated saline movement. In any case discharge, will go home today. I have added Imdur and subtracted hydrochlorothiazide, but her blood pressure is under good control. I encouraged her follow up with Dr. Ortiz. This is a hsxr-[id number] encounter note with CARINA Escobar. cc: Ronnell Plunkett MD
--- NOTE | 2018-08-22 17:32 | DISCHARGE SUMMARY ---
ADMISSION DATE: 08/19/2018 DISCHARGE DATE: 08/21/2018 ADMISSION DIAGNOSIS: 1. Hypertensive urgency likely rebound affects secondary to having gastroenteritis and not taking her medications. 2. Recent gastroenteritis still with some nausea [*] present. 3. History of cerebrovascular accident and transient ischemic attacks, no signs on admission . 4. Coronary artery disease, no chest pain. 5. Hyperlipidemia. 6. Obstructive sleep apnea. 7. Anxiety, depression. 8. Hypothyroidism. 9. Diabetes mellitus type 2, pattern blood glucoses sliding scale insulin. 10. Tobacco abuse, cessation discussed. DISCHARGE DIAGNOSIS: 1. Malignant hypertension, was on Cardene drip that got weaned off, hydrochlorothiazide stop, Norvasc and losartan continued, clonidine continued. 2. Was having some chest pain that she had Imdur added and it was nonischemic it was likely related to the hypertension. 3. History of cerebrovascular accident no changes . 4. Hypothyroidism stable . 5. Complaints of polyuria, her diuretic, antihypertensive was stopped which was hydrochlorothiazide . 6. Small patent bender ovale, small evidence of [id number] shunt. PHYSICIAN CONSULT: None. SURGERIES OR PROCEDURES: None. HOSPITAL COURSE: Ms Ashley Reyes is a 48-year-old female with a medical history of hypertension and most recently was diagnosed with gastroenteritis where she was unable to take her antihypertensives as prescribed presented with complaints of high blood pressure. She has running 190s to 200s over 100s. She presented to her primary care physician with this who sent her to the emergency department at [place]. She was initiated on a nicardipine drip, she was given IV labetalol received potassium for low potassium level, Zofran for her nausea. She was transferred to the ICU on nicardipine drip. At that point she was essentially transitioned from Cardene drip to oral antihypertensive with improved control of her blood pressure. She had some chest pains but negative ischemic events and she was started on Imdur for that, she was having polyuria so she was transitioned off of her hydrochlorothiazide, she had a echocardiogram which showed a small patent foramen ovale but almost no shunting otherwise her ejection fraction was 67%. She is going to be discharged home on oral antihypertensives and required to follow up with Dr. Ortiz, her spareribs trimmer. DISCHARGE VITAL SIGNS: Temperature 97.6 degrees, heart rate 67, respiratory rate 12, blood pressure 110/71, O2 saturation 97% on room air. LABORATORY DATA: On discharge white blood cells 3000, hemoglobin 12, hematocrit 38, platelet count 251,000. Sodium 139, potassium 3.3, BUN 9, creatinine 0.6, glucose 108, calcium 8.7. IMAGING: EKG normal sinus rhythm, rate 79, QTc 472. Head CT negative for any acute findings. Chest x-ray negative for any acute findings. Echocardiogram showed a small patent foramen ovale without shunt, normal ejection fraction and another chest x-ray on the which was also negative, another EKG on the which showed sinus tachycardia, rate was 105, QTc was 478. DISCHARGE MEDICATIONS: 1. Seroquel 100 mg p.o. nightly. 2. Catapres 0.2 mg p.o. twice daily. 3. Citalopram 40 mg p.o. daily. 4. Potassium 10 mEq p.o. daily. 5. Keppra 500 mg p.o. daily. 6. [place] 1 tab p.o. t.i.d. p.r.n. 7. Omeprazole 40 mg p.o. daily. 8. Plavix 75 mg p.o. daily. 9. Cozaar 100 mg p.o. daily. 10. Isosorbide mononitrate extended release 30 mg p.o. daily. 11. Norvasc 10 mg p.o. daily. 12. Phenergan 25 mg p.o. every 6 hours p.r.n. DISCHARGE DIET: Heart healthy. DISCHARGE ACTIVITY: As tolerated. DISCHARGE PHYSICIAN FOLLOWUP: Dr. Ortiz, Dr. Tucker, needs to follow up Diana in 1 to 2 weeks. DISCHARGE INSTRUCTIONS: Seek attention for any chest pain, dyspnea or blood pressure greater than 180/100. DISCHARGE DISPOSITION: Is home. Dictated by CARINA Escobar for Ronnell Plunkett MD cc: CARINA Escobar MD
== END 2018-08-21 14:16 | disposition home or self-care (01) | DRG 305 ==
LOC: P.ED 13:55 → P.ICU 17:19
PROVIDERS: ATTEND Internal Medicine
CPT/HCPCS: 70450; 71010; 71045; 80048; 80053; 81001; 82550; 83735; 84443; 84484; 85025; 85610; 85730; 87088; 93005; 93010; 93306; 94761; 94799; 96365; 96366; 96375; 96376; 99285; A9270; J2405; J7030